=== PATIENT | male | born 1955 | race Caucasian/White ===

== ENCOUNTER 2019-05-07 15:11 | Outpatient (CLI) | payer MEDICARE, SELFPAY ==
--- NOTE | 2019-05-07 15:32 | XR_ITS ---
WS: [id number] LATERAL LUMBAR SPINE: 3 view. Lateral radiographs are performed in upright neutral, flexion and extension to the patient's toleranc e. HISTORY: LOW PACK PAIN COMPARISON: None available. Severe straightening of the normal lumbar lordosis with severe loss of disc space height and endplate osteophytes. Facet joint arthropathy and sclerosis. During flexion and extension there is little mov ement of the spine. No instability is detected. XR/XR lumbar spine f/e only 71544 IMPRESSION: Severe multilevel spondylosis. No instability is demonstrated.
--- NOTE | 2019-05-07 15:48 | XR_ITS ---
WS: [id number] LEFT KNEE: 3 VIEW(S) TECHNIQUE: AP, oblique(s) and lateral. HISTORY: LEFT KNEE PAIN COMPARISON: None available. No fracture or dislocation. Moderate narrowing of the medial compartment with hypertrophic osteophytes in the medial and lateral compartments. Small suprapatellar joint effusion. No soft tissue abnormality. XR/XR knee LT 3V* [id number] IMPRESSION: 1. Moderate medial compartment osteoarthritis. 2. Small joint effusion. 3. With a small joint effusion an occult should be considered clinically. If kn ee pain persists consider follow-up LEFT knee CT evaluation.
== END 2019-05-07 15:12 | disposition home or self-care (01) ==
LOC: RADWPI 15:19
PROVIDERS: Family Provider Internal Medicine; PCP Internal Medicine; Visit Provider Nurse Practitioner
DX: M17.12 Unilateral primary osteoarthritis, left knee (principal); M47.896 Other spondylosis, lumbar region; M54.5 Low back pain; M25.562 Pain in left knee; M25.462 Effusion, left knee
CPT/HCPCS: 72120; 73562

== ENCOUNTER 2019-07-05 09:03 | Outpatient (CLI) | payer MEDICARE, SELFPAY ==
--- NOTE | 2019-07-05 09:23 | XR_ITS ---
WS: [id number] KNEES AP STANDING TECHNIQUE: Bilateral AP weightbearing view. CLINICAL INFORMATION: bilateral knee pain COMPARISON: None. FINDINGS: Bilateral standing views. Osteopenia. Advanced degenerative arthritis right knee with medial and late ral compartment narrowing. Hypertrophic changes along the joint line. Mild degenerative arthritis lef t knee. XR/[place] [id number] IMPRESSION: Advanced osteoarthritis right knee.
== END 2019-07-05 09:04 | disposition home or self-care (01) ==
LOC: RAD 09:08
PROVIDERS: Family Provider Internal Medicine; PCP Internal Medicine; Visit Provider Orthopaedic Surgery
DX: M17.11 Unilateral primary osteoarthritis, right knee (principal); M25.562 Pain in left knee; M25.561 Pain in right knee
CPT/HCPCS: 73565

== ENCOUNTER → 2020-11-03 09:54 | Day surgery (SDC) | payer MEDICARE, SELFPAY | PROVIDERS: PCP Internal Medicine; Visit Provider Orthopaedic Surgery | DX: Z01.818 Encounter for other preprocedural examination (principal) | CPT/HCPCS: 93005 ==

== ENCOUNTER → 2020-11-06 11:14 | Outpatient (BNVA) | payer MEDICARE, SELFPAY | PROVIDERS: PCP Internal Medicine; Visit Provider Orthopaedic Surgery | DX: Z20.822 Contact with and (suspected) exposure to COVID-19 (principal); M17.0 Bilateral primary osteoarthritis of knee | CPT/HCPCS: 87635 ==

== ENCOUNTER 2020-11-10 17:15 | Observation (INO) | payer MEDICARE, SELFPAY ==
[2020-11-03 09:30] VITALS: BMI 25.7
--- NOTE | 2020-11-03 09:47 | ANES.PREANE2 ---
Pre-Anesthetic Assessment Pre-Anesthetic Assessment: Height/Weight: Height 1.88 m Weight 90.718 kg Preop Diagnosis: Osteoarthritis Right knee Proposed Procedure: Operation Date: 11/10/20 07:00 Proposed Procedures p right Total Knee Arthroplasty 39979 m17.0(Right) - Dominic Manriquez MD Familial anesthetic complications: None Social: Social History: Tobacco and No alcohol Exam: Pre-Anes Outpt Exam: alert, oriented x 3, clear to auscultation bilaterally and regular rate & rhythm Airway: Cervical ROM: WNL MP: 2 Dentition: Full Additional comments: full [place] Pulmonary: Pulmonary: COPD CV/HEM: CV/HEM: HTN Metabolic: Metabolic: Thyroid Musc/skel: Musc/skel: Lower Back Pain Neuropsych: Neuropsych: Seizure (on levitracetam - last one over a week ago) Anesthetic Plan: ASA status: 3 Anesthesia: MAC and Regional (specify below) Other: Spinal + Adductor canal block Risk of > 500 ml blood loss (7ml/kg in children): No Other Pertinent Information: patient poor historian PFSH Anesthesia PFSH: Social History Smoking and tobacco status: current every day smoker cigarettes Packs smoked per day: 0.5 Alcohol intake: never Data Anesthesia Cardiac Studies: No Data to Display
--- NOTE | 2020-11-03 09:54 | ECG_ITS ---
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 Measurements Intervals [place] Rate: 58 P: 72 DE: 166 QRS: 55 QRSD: 118 T: 56 QT: 427 QTc: 421 Interpretive Statements SINUS BRADYCARDIA INCOMPLETE RIGHT BUNDLE BRANCH BLOCK [90+ ms QRS DURATION, TERMINAL R IN V1/V2, 40+ ms S IN I/aVL/V4/V5/V6] POSSIBLE INFERIOR MYOCARDIAL INFARCTION [30 ms Q WAVE IN II/aVF], OF INDETERMINATE AGE No previous ECG available for comparison Electronically Signed On 11-03-2020 19:02:47 CDT by Saulo Morrell M.D. [id number]
[2020-11-03 10:01] LABS: Hematocrit 38.7 % (42.0-52.0); Hemoglobin 12.5 g/dL (11.7-16.6); Mean Corpuscular HGB Conc 32.3 g/dL (30.0-36.0); Mean Corpuscular Hemoglobin 30.6 pg (28.0-34.0); Mean Corpuscular Volume 94.6 fL (80-94); Mean Platelet Volume 10.5 fL (7.4-10.4); Platelet Count 151 10^3/cmm (130-400); Red Blood Count 4.09 10^6/uL (4.1-5.3); Red Cell Distribution Width 13.1 % (12.1-15.1)
[2020-11-03 10:31] LABS: Absolute Eosinophils 0.1 10^3/cmm (0.0-0.7); Absolute Neutrophil 2.9 10^3/cmm (1.4-6.5); Absolute Segmented Neutrophil 2.7 10/cmm (1.6-7.1); Band Neutrophils Absolute 0.3 10^3/cmm (0.0-1.2); Eosinophils 3 %; Lymphocytes 32 %; Lymphocytes Absolute 1.6 10^3/cmm (1.2-3.4); Monocytes Absolute 0.4 10^3/cmm (0.1-0.6); Platelet Estimate Normal (Normal); Segmented Neutrophils 53 %; Total Cells Counted 100 (0-100)
[2020-11-03 10:39] LABS: Blood Urea Nitrogen 26 mg/dL (8-23); Calcium 8.9 mg/dL (8.5-10.5); Carbon Dioxide 28 mmol/L (22-29); Chloride 105 mmol/L (98-107); Glomerular Filtration Rate 55.4 mL/min (90-130); Glucose 116 mg/dL (65-115); Osmolality Calculated 296 mOsm/kg (285-295); Sodium 140 mmol/L (136-145)
[2020-11-10] VITALS (21 sets, daily range): BP systolic 96–184; BP diastolic 63–89; PULSE 46–61; RESP 15–23; TEMP 36.3–36.5; O2SAT 90–100
[2020-11-10] MEDS: sodium chloride 0.9% 1,000 ML 30 ML IV (10:25)
[2020-11-10] MEDS: gabapentin 300 mg Capsule PO (10:26)
[2020-11-10] MEDS: oxyCODONE 20 mg ER (12 HR) Tablet PO (10:26)
[2020-11-10] MEDS: CELEcoxib 200 mg Capsule 400 MG PO (10:26)
[2020-11-10] MEDS: acetaminophen 500 mg Tablet 1000 MG PO ×2 (10:27→18:14)
--- NOTE | 2020-11-10 11:58 | P.HP_ITS ---
Same Day Surgery H&P Indication for Procedure/HPI DATE OF PROCEDURE: November 10, 2020 CHIEF COMPLAINT/INDICATIONFOR SURGICAL PROCEDURE: 64-year-old male with osteoarthritis of the right knee. He is failed appropriate medications and injections and uses ambulatory aids with pain and insufficient function. He is here for elective right total knee arthroplasty PREOP DIAGNOSIS: Osteoarthritis Right knee PLANNED PROCEDRUE: Operation Date: 11/10/20 11:35 Proposed Procedures p right Total Knee Arthroplasty 94080 m17.0(Right) - Dominic Manriquez MD Medications/Allergies* Home Medications Medication Instructions Recorded Confirmed Type albuterol sulfate 90 mcg/actuation 2 puff INHALATION Q6H PRN 09/23/20 11/10/20 History aerosol inhaler celecoxib 100 mg capsule 100 mg PO BID 09/23/20 11/10/20 History cholecalciferol (vitamin D3) 50 50 mcg PO DAILY 09/23/20 11/03/20 History mcg (2,000 unit) capsule gabapentin 400 mg capsule 400 mg PO TID 09/23/20 11/03/20 History hydrochlorothiazide 12.5 mg tablet 12.5 mg PO DAILY 09/23/20 11/03/20 History hydroxyzine HCl 25 mg tablet 25 mg PO TID PRN 09/23/20 11/03/20 History levetiracetam 500 mg tablet 500 mg PO BID 09/23/20 11/03/20 History levothyroxine 88 mcg tablet 88 mcg PO DAILY 09/23/20 11/03/20 History multivitamin 1 tab PO DAILY 09/23/20 11/03/20 History naloxone 4 mg/actuation nasal spray 4 mg INTRANASAL Q3M PRN 09/23/20 11/03/20 History ondansetron HCl 4 mg tablet 4 mg PO Q6H PRN 09/23/20 11/03/20 History oxycodone 10 mg tablet 10 mg PO TID PRN 09/23/20 11/03/20 History ropinirole 1 mg tablet 1 mg PO DAILY 09/23/20 11/03/20 History sertraline 100 mg tablet 100 mg PO DAILY 09/23/20 11/03/20 History sildenafil 100 mg tablet 100 mg PO DAILY PRN 09/23/20 11/03/20 History tiotropium bromide 2.5 2 puff INHALATION DAILY 09/23/20 11/03/20 History mcg/actuation mist for inhalation tizanidine 4 mg capsule 4 mg PO BID PRN 09/23/20 11/03/20 History trazodone 100 mg tablet 100 mg PO DAILY 09/23/20 11/03/20 History Allergies/Adverse Reactions Allergy/AdvReac Type Severity Reaction Status Date / Time No Known Allergies Allergy Verified 11/03/20 09:25 Current Medications: Generic Name Dose Route Start Last Admin Trade Name Freq PRN Reason Stop Dose Admin Sodium Chloride 1,000 mls @ 30 mls/hr 11/10/20 10:00 11/10/20 10:25 Sodium Chloride 0.9% IV 11/11/20 09:59 30 mls/hr .Q24H SHAE Administration Pertinent History/Comorbid Conditions* Social History Smoking and tobacco status: current every day smoker cigarettes Packs smoked per day: 0.5 Alcohol intake: never Pertinent Exam Findings alert, oriented x 3, clear to auscultation bilaterally, regular rate & rhythm and operative site marked Recommendations Surgery/Procedure today Coding Level of Care Code Acute Hand Cooper Helper for Enmaunel Singh
--- NOTE | 2020-11-10 12:16 | P.ANESUD_ITS ---
Pre-Anesthetic Update Pre-Anesthetic Assessment: Date of Surgery/Procedure: 11/10/20 Preop Joanne gnosis: Osteoarthritis Right knee Proposed Procedure: Operation Date: 11/10/20 11:35 Proposed Procedures p right Total Knee Arthroplasty 21562 m17.0(Right) - Dominic Manriquez MD Any changes to Pre-Anesthetic Assessment?: No Last Intake: Intake Last Liquid Date 11/09/20 Last Liquid Time 20:00 Last Solid Date 11/09/20 Last Solid Time 18:00 Vitals: Temperature 97.3 F L 11/10/20 10:08 Temperature Source Temporal Artery S can 11/10/20 10:08 Pulse Rate 61 11/10/20 10:08 Respiratory Rate 18 11/10/20 10:08 Blood Pressure 143/88 11/10/20 10:08 Blood Pressure Brittanie n 106 11/10/20 10:08 Pulse Oximetry 94 11/10/20 10:08 Oxygen Delivery Me thod 11/10/20 10:08 Exam: Pre-Anes Outpt Exam: alert, oriented x 3, clear to auscultation bilaterally and regular rate & rhythm Other Pertinent Information: Other Pertinent Information: SAB with adductor blk Cardiac Studies: No Data to Display
[2020-11-10] MEDS: EPINEPHrine 1 mg/mL INJ XX (13:12)
[2020-11-10] MEDS: ketorolac 30 mg/mL INJ XX (13:13)
[2020-11-10] MEDS: tranexamic acid 1,000 mg/10mL SDV 1000 MG IRRIGATION (13:14)
--- NOTE | 2020-11-10 14:52 | P.PCN_ITS ---
Documented by User: Ramy Rey CRNA 11/10/20 14:52 PACU note PACU note: VSS, Good respiratory effort, report to MA[employer]GER [employer] Post-Anesthesia Exam: awake
--- NOTE | 2020-11-10 14:52 | PM.PACU ---
Documented by User: Ramy Rey CRNA 11/10/20 14:52 PACU note PACU note: VSS, Good respiratory effort, report to DRIVE THRU ORDER TAKER Post-Anesthesia Exam: awake
--- NOTE | 2020-11-10 15:01 | SUR.PHASEI ---
1447 PT AWAKE ALERT SITTING UP AT 40 DEGREES , PT HAS COPD, GOOD RESP EFFORT PT ON 3LNC , PT SPINAL ANESTHESIA, LEVEL AT T10, VSS 1515 PT AWAKE ALERT DENIES PAIN SPINAL AT T 12 PER PT RESPONSE TO TOUCH, X RAY HERE AND DONE.
--- NOTE | 2020-11-10 15:01 | ANES.PROC ---
Anesthesia Procedures Procedure/Date: 11/10/20 Nerve Block ^: Nerve Block 1: Main Anesthesia: spinal anesthesia block Time Out Performed: Yes Consent: requested by attending/covering physician Nerve block location: adductor canal (right) Anesthesia monitors applied: pulse oximetry, EKG, BP cuff and oxygen Anesthetic Used: ropivicaine 0.5% Amount of anesthesia used (mL): 20 Ultrasound used to: recognize landmarks Nerve Stimulator Used?: No Interscalene/Femoral BLK: 4 stimuplex 21 g needle used for position and inplane approach and visualize local anesthetic spread Injection: neg aspiration of heme Patient Tolerated Procedure: well Complications: none
--- NOTE | 2020-11-10 15:03 | XR_ITS ---
WS: [id number] Exam: XR knee RT 1-2V 30878 Date/Time of Exam: 11/10/2020 3:08 PM Reason For Exam: Right total knee arthroplasty A total knee prosthesis has been placed and is in excellent position. Postoperative changes in the ad jacent soft tissues. XR/XR knee RT 1-2V 05830 IMPRESSION: 1. Total knee replacement in excellent position.
--- NOTE | 2020-11-10 15:06 | PM.OP ---
Operative Report Date of procedure: November 10, 2020 Pre-op Diagnosis: Osteoarthritis Right knee Post-op diagnosis: same Post-op Findings: Same Procedure Done: Right total knee arthroplasty Implants: Michael total knee arthroplasty components were used includin) Size 7 triathalon cruciate substituting femoral component 2) Size 7 Tritanium tibial component 3) 38 mm /11 mm thickness Tritanium asymetric patella 4) Size 7/11 mm thickness posterior stabilized tibial bearing insert Pathology: none sent Surgeon: Dominic Manriquez Anesthesia: Nerve Block (Spinal, adductor canal) Estimated blood loss (mL): 300 Findings: The patient had tricompartmental degenerative changes with marked eburnation over his lateral femoral condyle and lateral tibial plateau Condition: stable Disposition: PACU Procedure: The patient was taken to the operating room. Patient was given 1 g of tranexamic acid . The above anesthesia provided by the anesthesia service. A timeout was performed. The patient was prepped and draped in the usual fashion with the lower extremity exposed. A anterior incision was made, midline, from a point proximal to the patella to the distal tibial tubercle. The knee was entered through a medial parapatellar approach. The patella could be displaced laterally and the knee flexed. The patellar fat pad was resected to provide better visibility. Retractors were placed medially and laterally adjacent to the tibial plateau. The femoral canal was drilled in line with the longitudinal axis of the femur. Intramedullary femoral guide for used to make a distal femoral cut in 5 degrees of valgus, resecting 8 mm from the more prominent condyle. Next the extra medullary tibial guide was placed in alignment with the longitudinal axis of the tibia. The cutting guides were set to remove just over 2 mm from the low lateral tibial plateau. The proximal tibia was then cut. The femoral measuring guide was then placed over the distal femur. Rotation was verified checking the relationship of the guide to the condyle and the trochlear groove. The femur was measured and cut for the desired femoral component. Due to the amount of resection of the proximal tibia I decision was made to proceed with a posterior stabilized component and the box cut out of the distal femur for that component. The desired tibial baseplate was then chosen. A trial reduction with the femur tibial baseplate and polyethylene was done, assuring that the knee was stable throughout full motion. Balance was obtained with bony cuts andspecific ligamentous releases were accomplished.The tibia was prepared for the tibial baseplate. Patellar thickness was then measured. The patella was cut removing articular cartilage and prepared for appropriate size patellar button. surfaces were cleaned with a gentamicin/tranexamic acid solution. The femur tibia and patella were then press-fit into place. Patellar stability was thought to be less than optimal. The patella was removed and surfaces cleaned with saline. The patella was then cemented into place. The posterior capsule and collateral ligaments were then injected with a solution of 100 mL of 0.2% ropivacaine, 1 mL of a 1:1000 epinephrine solution, and 30 mg of Toradol. Final polyethylene component was then snapped into place into the tibia. The tourniquet was deflated. The tranxanemic acid was left contact with the knee for 5 minutes before the knee was irrigated with saline. The extensor retinaculum was closed with a running 1 Stratafix.. The subcutaneous tissues were closed with 2-0 Vicryl and the skin was closed with a running 3-0 Stratafix. The wound was covered with a Dermabond Prinio dressing. It was covered with 4xrs and a compressive Tubigauae was applied. The patient was taken to recovery room in stable condition.
--- NOTE | 2020-11-10 16:01 | SUR.PHASEI ---
1536 pt awake alert denies pain bedside handoff to YOANDY RN pt to be held in OPS UNTIL BED IS AVAILABLE.
--- NOTE | 2020-11-10 16:43 | ANE.PACU2 ---
Inpatient post-anesthesia follow up: Airway intact: Yes Vital signs: Temperature 97.4 F Pulse Rate 48 Respiratory Rate 18 Blood Pressure 96/66 Pulse Oximetry 93 Oxygen Delivery Me thod Room Air Oxygen Flow Rate 2 Fraction of Inspir ed Oxygen Hydration adequate: Yes Nausea and vomiting: No Pain level: 2 Mental status: Baseline
[2020-11-10] MEDS: sodium chloride 0.9% 1,000 ML 100 ML IV ×2 (18:13→23:29)
[2020-11-10] MEDS: gabapentin 400 mg Capsule PO ×2 (18:14→21:03)
[2020-11-10] MEDS: levETIRAcetam 500 mg Tablet PO (18:15)
[2020-11-10] MEDS: oxyCODONE 5 mg IR Tab/Cap 10 MG PO ×2 (18:15→21:53)
[2020-11-10] MEDS: morphine 4 mg/mL SDV 1 mL IVP ×4 (19:17→23:38)
[2020-11-10] MEDS: CELEcoxib 200 mg Capsule PO (21:03)
[2020-11-10] MEDS: trazodone 100 mg Tablet PO (21:04)
[2020-11-10] MEDS: sertraline 100 mg Tablet PO (21:04)
[2020-11-10] MEDS: tizanidine 4 mg Tablet PO (21:54)
[2020-11-11] VITALS (10 sets, daily range): BP systolic 134–140; BP diastolic 74–75; PULSE 70–73; RESP 15–20; TEMP 36.6–37.3; O2SAT 90–92
[2020-11-11] MEDS: morphine 4 mg/mL SDV 1 mL IVP ×5 (01:06→09:17)
[2020-11-11 02:41] LABS: Hemoglobin 11.4 g/dL (11.7-16.6)
[2020-11-11] MEDS: oxyCODONE 5 mg IR Tab/Cap 10 MG PO ×3 (06:00→13:10)
[2020-11-11] MEDS: sennosides-docusate Tablet 2 TAB PO (08:17)
[2020-11-11] MEDS: gabapentin 400 mg Capsule PO (08:17)
[2020-11-11] MEDS: levETIRAcetam 500 mg Tablet PO (08:17)
[2020-11-11] MEDS: hydroCHLOROthiazide 25 mg Tablet 12.5 MG PO (08:18)
[2020-11-11] MEDS: ropinirole 1 mg Tablet PO (08:18)
[2020-11-11] MEDS: levothyroxine 88 mcg Tablet PO (08:18)
[2020-11-11] MEDS: CELEcoxib 200 mg Capsule PO (08:18)
[2020-11-11] MEDS: multivitamin therapeutic Tablet 1 TAB PO (08:18)
[2020-11-11] MEDS: aspirin 325 mg EC Tablet PO (08:18)
[2020-11-11] MEDS: acetaminophen 500 mg Tablet 1000 MG PO (09:21)
--- NOTE | 2020-11-11 10:26 | PC.CHAP ---
Pastoral Care Encounter/Spiritual Assessment Type of Contact [] Declined aircraft maintenance director visit [] Patient/Family/Request visit [] Outpatient visit [] Follow-up visit [] Physician referral [] Code/Alert [x] Routine visit [] Staff referral [] Actively dying [] Patient sleeping [] Family support [] [] Out of room [] Palliative care [] [] Receiving care in room [] Pre-surgical visit [] Trauma [] Long length of stay [] ICU visit [] Other: Relational/Emotional Strength [] Patient feels connected with others/family/visitors/staff [] Distress [] Loneliness/isolation [] Abandonment Spirituality of Patient [x] Person of [place] [] Attends Sikh of their [place] [] Believes in Prayer [] Reads Bible or Bahai materials [] There are Spiritual issues to be addressed Bed And Breakfast Innkeeper Interventions [x] Prayer [] Active listening [] Non-anxious presence [] Spiritual/emotional support [] Crisis/trauma care [] Spiritual counseling [] Bereavement support [] Provided bereavement packet [] Provided Bible/devotional materials [] Provided toy/stuffed animal, coloring book to patient or family member [] Provided Communion [] Anointing/[place] [] Salvation [x] Completed spiritual assessment [] Other: Impact on Illness or Injury [] Angry [] Fearful [] Anxious [] Often cries [] Exhaustion [] Unable to work [] Unable to attend methodist [] Unable to walk/stand [] Unable to read [] Unable to drive [] Unable to eat/drink [] Unable to sleep [] Unable to be with family [] Patient intubated [] Other: Summary lopts of pain Time spent with patient 5 mi9n
--- NOTE | 2020-11-11 13:29 | PM.DCS ---
Discharge Providers Date of Admission: 11/10/20 17:15 Date of Discharge: November 11, 2020 Attending Provider at Admission: Dominic Manriquez MD Attending Provider at Discharge: Dominic Manriquez MD Primary Care Provider: Jericho Green MD Reason for Visit Reason for Visit: right total knee arthroplasty/ 44060 Hospital Course Hospital Course The patient tolerated surgery well. They remained hemodynamically stable. They was begun on aspirin and sequential compression devices for DVT prophylaxis. The patient was mobilized with therapy beginning the day of surgery and by the first postoperative day independent with the walker. As the pain was adequately controlled and they were fully mobile they were discharged home. Physical Exam Narrative: EXAM NARRATIVE: On the day of discharge his knee incision was clean. They had no drainage. There is minimal swelling in the thigh and knee and the calf. No distal neurovascular deficits were noted Urinary Catheter Management^: Ojeda: Cath Placed During This Visit: yes, but has since been removed by the nurse Reason for Continuing Indwelling Catheter: Perioperative Use in Selected Surgeries Urinary Catheter Date of Insertion: 11/10/20 Urinary Catheter Time of Insertion: 12:50 Date Urinary Catheter Removed: 11/11/20 Time Urinary Catheter Discontinued: 06:22 Discharge Data Data Completed and Pending: Completed Studies During Hospitalization Category Date Time Status XR knee RT 1-2V 7 3560 Routine Exams 11/10/20 15:03 Completed Labs from last 24 hours 11/11/20 02:17 Hgb 11.4 L Vitals: Last Vital Signs Temp 99.2 F 11/11/20 11:43 Pulse 73 11/11/20 11:43 Resp 20 H 11/11/20 13:10 BP 134/74 11/11/20 11:43 Pulse Ox 91 11/11/20 11:43 Discharge Plan Discharge Patient Disposition: Home Condition: Stable Prescriptions: New acetaminophen 500 mg Tablet 1,000 mg PO Q8H 14 Days Qty: 84 RF: 0 celecoxib 200 mg Capsule 200 mg PO Q12H 14 Days Qty: 28 RF: 0 aspirin 325 mg Tablet,Delayed Release (Dr/Ec) 325 mg PO DAILY 30 Days Qty: 30 RF: 0 oxycodone 5 mg Tablet 10 mg PO Q3H PRN (Reason: Severe Pain) 7 Days Qty: 40 RF: 0 Continued sertraline 100 mg tablet 100 mg PO DAILY RF: 0 trazodone 100 mg tablet 100 mg PO DAILY RF: 0 albuterol sulfate 90 mcg/actuation HFA aerosol inhaler 2 puff inhalation Q6H PRN (Reason: sob) RF: 0 gabapentin 400 mg capsule 400 mg PO TID RF: 0 hydrochlorothiazide 12.5 mg tablet 12.5 mg PO DAILY RF: 0 levetiracetam [Keppra] 500 mg tablet 500 mg PO BID RF: 0 levothyroxine [Synthroid] 88 mcg tablet 88 mcg PO DAILY RF: 0 ropinirole 1 mg tablet 1 mg PO DAILY RF: 0 Spiriva Respimat 2.5 mcg/actuation mist 2 puff inhalation DAILY RF: 0 tizanidine 4 mg capsule 4 mg PO BID PRN (Reason: Pain) RF: 0 hydroxyzine HCl 25 mg tablet 25 mg PO TID PRN (Reason: Blood Pressure) RF: 0 sildenafil [Viagra] 100 mg tablet 100 mg PO DAILY PRN (Reason: Sexual Activity) RF: 0 ondansetron HCl [Zofran] 4 mg tablet 4 mg PO Q6H PRN (Reason: Nausea) RF: 0 Narcan 4 mg/actuation spray,non-aerosol 4 mg intranasal Q3M PRN (Reason: over dose) RF: 0 cholecalciferol (vitamin D3) 50 mcg (2,000 unit) capsule 50 mcg PO DAILY RF: 0 multivitamin Tablet 1 tab PO DAILY RF: 0 Discontinued celecoxib [Celebrex] 100 mg capsule 100 mg PO BID RF: 0 oxycodone 10 mg tablet 10 mg PO TID PRN (Reason: pain]) RF: 0 Discharge Orders: Discharge Order (Routine); Ordered 11/11/20 Ordered By: Dominic Manriquez Referrals: [facility] [Outside] Dominic Manriquez MD [Physician] - 11/14/20 1:30 pm (Tuesday) Discharge Diet: Advance as tolerated Discharge Activity: Limit activity as instructed Patient Instructions: Aspirin (By mouth), Oxycodone, Rapid Release (By mouth), Celecoxib (By mouth), Total Knee Replacement (DC), Opioid Safety Activity Restrictions/Additional Instructions: take okay to shower Keep Tubigauze sleeve in place for swelling. Okay to remove for hygiene. Apply FirstIce up to 20 min/hr for pain and swelling Take 200 mg Celebrex twice a day for the next 15 days for pain , resume normal dose of Celebrex thereafter Take Tylenol 500mg (1-2 tabs) as needed 3 times a day for mild pain take oxycodone for breakthrough pain. Exercises per physical therapy. May weight-bear as tolerated on total knee arthroplasty For breakthrough pain. Exercises per physical therapy. May weight-bear as tolerated on total knee arthroplasty Discharge Attestations Time Spent in Discharge Care*: other Quality Metrics Clinical Quality Measures During this hospital stay, did patient experience: None Coding Level of Care Code Acute Nadia AMARA COREAS note
--- NOTE | 2020-11-11 14:38 | PC.NURSE ---
Discharge instructions went over with patient and spouse at bedside. Patient and stated understanding Patient's meds were discussed and went over, sent to pharmacy on file. Sent home extra supplies until home health could make it to the house. IV discontinued and patient wheeled out via wheelchair to private vehicle.
== END 2020-11-11 14:44 | disposition home or self-care (01) ==
LOC: MEDSURG 17:15
PROVIDERS: Anesthesiology; Admitting Provider Orthopaedic Surgery; PCP Internal Medicine; Visit Provider Orthopaedic Surgery
PROC: (CPT 27447; principal; 2020-11-10 11:35)
DX: M17.11 Unilateral primary osteoarthritis, right knee (principal); F17.210 Nicotine dependence, cigarettes, uncomplicated; J44.9 Chronic obstructive pulmonary disease, unspecified; I10 Essential (primary) hypertension
CPT/HCPCS: 27447; 36415; 51702; 64447; 73560; 76942; 80048; 85007; 85018; 85027; 96365; 97110; 97116; 97162; 97167; C1776; G0378; J0171; J0690; J1580; J1885; J2250; J2270; J2405; J2795; J3010; J7030

== ENCOUNTER → 2020-12-10 10:35 | Outpatient (BNVA) | payer MEDICARE, SELFPAY | PROVIDERS: PCP Internal Medicine; Visit Provider Orthopaedic Surgery | DX: Z96.651 Presence of right artificial knee joint (principal); M17.11 Unilateral primary osteoarthritis, right knee | CPT/HCPCS: 73560; 73565 ==

== ENCOUNTER → 2021-10-28 10:19 | Outpatient (BNVA) | payer MEDICARE, SELFPAY | PROVIDERS: PCP Internal Medicine; Visit Provider Specialist | DX: Z96.651 Presence of right artificial knee joint (principal); M17.12 Unilateral primary osteoarthritis, left knee; M25.561 Pain in right knee; M25.562 Pain in left knee; G89.29 Other chronic pain | CPT/HCPCS: 99205; 99214 ==

== ENCOUNTER 2021-12-18 08:48 | Outpatient (CLI) | payer MEDICARE, SELFPAY ==
--- NOTE | 2021-12-18 08:57 | NM_ITS ---
WS: [id number] THREE-PHASE BONE SCAN, three-phase HISTORY: Right-sided knee replacement. LEFT knee pain. COMPARISON: No similar studies. Radiographs 12/18/2021 and 08/18/2021 Patient is is injected with 23.7 mCi Tc99m HDP intravenously. Immediate angiographic phase imaging is performed over the area of concern. Static blood pool imaging also performed. Two-hour whole-body sc intigrams performed in anterior and posterior projections. Additional large field of view imaging sub mitted as necessary. 3 phase bone scan imaging centered over the knees. Normal arterial and blood pool phase imaging. Intense uptake of the radionuclide centered along the lateral compartment of the LEFT knee. This invo lves the articular surfaces of the femoral condyle and tibial plateau. Joint spaces appear narrowed. Prior RIGHT knee replacement. Additional focal area of increased uptake in the distal LEFT fibula. Mild bilateral AC joint and SC joint arthritis. Mild curvature and scoliosis of the lumbar spine. Mil d facet joint arthritis on the RIGHT at L2. Normal soft tissue and renal uptake. NM/NM bone 3 phase [id number] IMPRESSION: 1. Intense uptake involving the lateral compartment of the LEFT knee along the articular surfaces. Suspect this is all related to osteoarthritis. There is se merrill joint space narrowing and hypertrophic bone formation on the radiographic series that was obtained. No fracture. 2. Prior RIGHT knee arthroplasty. 3. Intense uptake involving the distal LEFT fibula corresponds to a healing no ndisplaced fracture by radiograph.
--- NOTE | 2021-12-18 12:02 | XR_ITS ---
WS: [id number] LEFT KNEE: 3 VIEW(S) TECHNIQUE: AP, oblique(s) and lateral. HISTORY: BONE SCAN COMPARISON COMPARISON: 08/18/2021 No fracture or dislocation. Bone upon bone within the lateral compartment. Joint space narrowing with hypertrophic osteophytes an d sclerosis in the lateral compartment. No fractures or loose bodies. No joint effusion. Moderate to severe patellofemoral joint space arthritis and narrowing. Mild arthro mahad medial compartment. XR/XR knee LT 3V* [id number] IMPRESSION: 1. Severe lateral compartment joint space narrowing with hypertrophic osteophy te formation. 2. No fractures.
--- NOTE | 2021-12-18 12:02 | XR_ITS ---
WS: [id number] LEFT ANKLE: 3 VIEW(S) TECHNIQUE: AP, oblique(s) and lateral. HISTORY: Abnormal uptake on bone scan. COMPARISON: Bone scan imaging 2021. Bones are osteopenic. Healing nondisplaced oblique fracture through the distal fibula. This correspon ds to the abnormality seen on the recent bone scan. XR/XR ankle LT min 3V* [id number] IMPRESSION: Healing nondisplaced distal fibular fracture.
== END 2021-12-18 08:49 | disposition home or self-care (01) ==
LOC: RAD 08:51
PROVIDERS: PCP Internal Medicine; Visit Provider Specialist
DX: M17.12 Unilateral primary osteoarthritis, left knee (principal); Z96.651 Presence of right artificial knee joint; S82.492D Other fracture of shaft of left fibula, subsequent encounter for closed fracture with routine healing; X58.XXXD Exposure to other specified factors, subsequent encounter
CPT/HCPCS: 73562; 73610; 78315; A9561

== ENCOUNTER → 2021-12-30 10:49 | Outpatient (BNVA) | payer MEDICARE, SELFPAY | PROVIDERS: PCP Internal Medicine; Visit Provider Specialist | DX: M17.12 Unilateral primary osteoarthritis, left knee (principal); Z96.651 Presence of right artificial knee joint | CPT/HCPCS: 99213 ==

== ENCOUNTER 2022-02-01 15:01 | Outpatient (CLI) | payer MEDICARE, SELFPAY ==
--- NOTE | 2022-02-01 15:00 | CT_ITS ---
WS: [id number] CT LEFT KNEE, NONCONTRAST HUGH TECHNIQUE: Noncontrast CT of the LEFT knee to include the LEFT hip and ankle. CLINICAL INFORMATION: left knee arthritis COMPARISON: None. DLP: [address] scans at [facility] use at least one of these dose optimization techniques: automated e xposure control; mA and/or kV adjustment per patient size (includes targeted exams where dose is matc hed to clinical indication); or iterative reconstruction. FINDINGS: Prior postoperative changes RIGHT TKA. Degenerative arthritis sacroiliac joints with hypertrophic sim nges. Moderate to advanced tricompartmental arthritis LEFT knee. Hypertrophic spurring along the join t line. Small suprapatellar effusion. Hypertrophic patella. Osteopenia. Vascular calcification. Promi nent prostate measuring 3.3 x 3.7 CM. Evidence of bladder outlet obstruction. Trace free fluid in the pelvis. CT/CT knee LT HUGH IMPRESSION: 1. Images obtained for preoperative HUGH purposes. 2. Prominent prostate measuring 3.3 x 3.7 CM. Evidence of bladder outlet obstr uction. Recommend correlation PSA.
== END 2022-02-01 15:02 | disposition home or self-care (01) ==
PROVIDERS: PCP Family Medicine; Visit Provider Specialist
DX: M17.12 Unilateral primary osteoarthritis, left knee (principal)
CPT/HCPCS: 73700

== ENCOUNTER → 2022-03-29 13:58 | Outpatient (BNVA) | payer MEDICARE, SELFPAY | PROVIDERS: PCP Family Medicine; Visit Provider Specialist | DX: N40.0 Benign prostatic hyperplasia without lower urinary tract symptoms (principal); M17.12 Unilateral primary osteoarthritis, left knee; Z96.651 Presence of right artificial knee joint | CPT/HCPCS: 36415; 80053; 81003; 84153; 85025; 99213 ==

== ENCOUNTER 2022-05-01 07:16 | Inpatient (IN) | payer MEDICARE, SELFPAY ==
[2022-05-01] VITALS (53 sets, daily range): BP systolic 96–119; BP diastolic 47–68; PULSE 75–100; RESP 12–27; TEMP 35.9–36.8; O2SAT 81–100
--- NOTE | 2022-05-01 07:23 | XRR_ITS ---
PROCEDURE INFORMATION: Exam: XR Chest Exam date and time: 05/01/2022 8:25 AM Age: 66 years old Clinical indication: Shortness of breath; Additional info: SOB TECHNIQUE: Imaging protocol: Radiologic exam of the chest. Views: 1 view. COMPARISON: CR XR KUB portable [id number] 05/01/2022 8:21 AM FINDINGS: Lungs: Indistinct bandlike density left lower lung zone presumed secondary to subsegmental atelectasis. Remaining lung bush are clear. Pleural spaces: Unremarkable. No pleural effusion. No pneumothorax. Heart/Mediastinum: Unremarkable. No cardiomegaly. Bones/joints: Unremarkable for age. XR/XR chest 1V portable [id number] IMPRESSION: Left lower lobe subsegmental atelectasis. Continued follow-up advised.
--- NOTE | 2022-05-01 07:35 | ED_ITS ---
HPI - Weakness General: Chief complaint: Weakness Stated complaint: WEAKNESS Time Seen by Provider: 05/01/22 07:23 History of Present Illness: 66-year-old male presents with generalized weakness. Patient was brought in by EMS. Patient was recently had labs drawn and was found to have an elevated ammonia level. He started on lactulose yesterday. Family reports that this morning he is just unable to really get up and walk around. He was requiring a little bit of oxygen typically does not need oxygen per EMS. Patient also had kind of a decreased low blood pressure was in the 80s. Patient complains of just some generalized abdominal pain, malaise. EMS reports that family states he has been a little confused for the last couple days as why they checked his ammonia level. 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 Patient denies shortness of breath, fevers or chills. Associated symptoms: Denies chest pain, chills, fever(s), nausea or vomiting Review of Systems Const: Denies: fever(s) or chills Card: Denies: chest pain or palpitations Resp: Denies: dyspnea or productive cough GI: Reports: abdominal pain; Denies: nausea or vomiting : Denies: flank pain Skin/Breast: Denies: rash Neuro: Reports: other (generalized weakness) PFS ED PFSH: Medical History Osteoarthritis of right knee Primary osteoarthritis of left knee Surgical History Status post meniscectomy Status post right knee replacement Family History (Updated 05/01/22 @ 11:35 by Serjio Espinal MD) Father Heart attack Social History (Updated 05/01/22 @ 11:35 by Serjio Espinal MD) Smoking and tobacco status: current every day smoker (1/2 PACK TO 1 PACK) cigarettes Packs smoked per day: 0.5 Alcohol intake: former Substance/Drug Use: unknown Physical Exam Const: GENERAL APPEARANCE: disheveled and other (chronically ill ) ORIENTATION/CONSCIOUSNESS: Yes oriented to person; not oriented to time HENMT: MOUTH: other (lip dry,cracked ) Resp: AUSCULTATION: diminished lung sounds bilateral and diffuse (mild) Cardio: COMMON NORMALS: regular rate and regular rhythm RATE: regular rate RHYTHM: regular rhythm GI: PALPATION: Yes Tenderness to palpation present (GI) (diffuse) Neuro: SENSORIUM/ORIENTATION: Yes oriented to person and No oriented to time SPEECH: abnormal speech Details: slurred (Mild) Psych: APPEARANCE: Yes disheveled ATTITUDE: Yes calm Skin: COMMON NORMALS: no rashes or lesions noted GENERAL SKIN EXAM: no rashes or lesions noted Course Vital Signs: Vital signs: Vital Signs Temperature 96.7 F L 05/01/22 07:23 Pulse Rate 98 05/01/22 11:30 Respiratory Rate 18 05/01/22 11:30 Blood Pressure 99/64 05/01/22 11:30 Pulse Oximetry 95 05/01/22 11:30 Oxygen Delivery Me thod 05/01/22 08:00 Oxygen Flow Rate 2 05/01/22 08:00 MDM - Weakness Medical Decision Making Reviewed patient's labs CT x-ray findings. There is some concerns about possible bleeding in the abdomen. However due to patient's medical conditions enlarged liver there is minimal that could be done. Did call and discussed with a couple hospitals and they have long wait time for admission. Patient does have some acute kidney injury and potential hepatorenal l syndrome. We will admit patient to Dr. Espinal for further inpatient management. Patient will receive some IV fluids and serial exams to determine if further evaluation and work work-up will be needed. Patient may have a potential second CT once his creatinine improves. Patient was stable upon admission. Lab Data 05/01/22 07:57 05/01/22 07:57 Radiology Impressions Chest X-Ray 05/01/22 07:23 IMPRESSION: Left lower lobe subsegmental atelectasis. Continued follow-up advised. KUB X-Ray 05/01/22 07:39 IMPRESSION: Findings suspicious for pronounced hepatomegaly which could be better assessed on CT exam. Abdomen/Pelvis CT 05/01/22 08:34 IMPRESSION: 1. Small volume free intraperitoneal fluid of differing attenuation measurements suggesting there is an element of hemoperitoneum. 2. The source of bleeding is uncertain based on this exam alone, but given stigmata of cirrhosis and portal hypertension there may be a bleeding venous structure which is not apparent on this noncontrast exam. ADDENDUM: 05/01/22 0956 THIS REPORT CONTAINS FINDINGS THAT MAY BE CRITICAL TO PATIENT CARE. The exam findings were verbally communicated by me via telephone conference to KEIKO SMITH at 9:44 AM STUDENT AMBASSADOR on 05/01/2022. The findings were acknowledged and understood. Laboratory Results WBC 11.3 10^3/uL (4.0-10.0) H 05/01/22 07:57 RBC 2.98 10^6/uL (4.1-5.3) L 05/01/22 07:57 Hgb 9.8 g/dL (11.7-16.6) L 05/01/22 07:57 Hct 30.3 % (42.0-52.0) L 05/01/22 07:57 MCV 101.7 fl (80-94) H 05/01/22 07:57 MCH 32.9 pg (28.0-34.0) 05/01/22 07:57 MCHC 32.3 g/dL (30.0-36.0) 05/01/22 07:57 RDW 18.8 % (12.1-15.1) H 05/01/22 07:57 Plt Count 100 10^3/cmm (130-400) L 05/01/22 07:57 MPV 13.2 fL (7.4-10.4) H 05/01/22 07:57 Neut % (Auto) 64.9 % 05/01/22 07:57 Lymph % (Auto) 21.0 % 05/01/22 07:57 Ceiba % (Auto) 9.7 % 05/01/22 07:57 Eos % (Auto) 3.4 % 05/01/22 07:57 Baso % (Auto) 1.0 % 05/01/22 07:57 Neut # (Auto) 6.38 10^3/uL (1.8-7.7) 05/01/22 07:57 Lymph # (Auto) 2.4 10^3/uL (0.8-4.8) 05/01/22 07:57 Ceiba # (Auto) 1.1 10^3/uL (0.2-0.9) H 05/01/22 07:57 Eos # (Auto) 0.4 10^3/uL (0.0-0.8) 05/01/22 07:57 Baso # (Auto) 0.1 10^3/uL (0.0-0.1) 05/01/22 07:57 Nucleated RBC % (auto) 0.4 % 05/01/22 07:57 Nucleated RBCs # 0.1 /100WBC 05/01/22 07:57 Sodium 138 mmol/L (136-145) 05/01/22 07:57 Potassium 5.1 mmol/L (3.5-5.1) 05/01/22 07:57 Chloride 100 mmol/L (98-107) 05/01/22 07:57 Carbon Dioxide 22 mmol/L (22-29) 05/01/22 07:57 Anion Gap 21.1 (5-19) H 05/01/22 07:57 BUN 46 mg/dL (8-23) H 05/01/22 07:57 Creatinine 2.5 mg/dL (0.7-1.2) H 05/01/22 07:57 GFR Calculation 25.9 mL/min (90-130) L 05/01/22 07:57 Glucose 92 mg/dL (65-115) 05/01/22 07:57 Calculated Osmolality 298 mOsm/kg (285-295) H 05/01/22 07:57 Lactate 3.8 mmol/L (0.5-2.2) H 05/01/22 11:00 Calcium 12.5 mg/dL (8.5-10.5) H 05/01/22 07:57 Magnesium 1.9 mg/dL (1.7-2.3) 05/01/22 07:57 Total Bilirubin 1.9 mg/dL (0.15-1.2) H 05/01/22 07:57 AST 285 U/L (0-40) H 05/01/22 07:57 ALT 51 U/L (0-41) H 05/01/22 07:57 Alkaline Phosphatase 232 U/L (40-130) H 05/01/22 07:57 Ammonia 33 umol/L (16-60) 05/01/22 07:57 Total Protein 6.8 g/dL (6.6-8.7) 05/01/22 07:57 Albumin 2.9 g/dL (3.5-5.2) L 05/01/22 07:57 Globulin 3.9 g/dL (1.3-4.6) 05/01/22 07:57 Procalcitonin 2.12 ng/mL (0-0.5) H 05/01/22 07:57 Ethyl Alcohol < 10 mg/dL (0-10) 05/01/22 07:57 Influenza Type A Ag negative (Negative) 05/01/22 07:39 Influenza Type B Ag negative (Negative) 05/01/22 07:39 SARS-CoV-2 Ag (Rapid) negative (Negative) 05/01/22 07:39 Discharge Plan Discharge Patient Disposition: Admitted As Inpatient Clinical Impression: Acute kidney failure, Hepatorenal failure, Liver cirrhosis Condition: Stable Coding Level of Care Code ED [employer] Fwd Exam Comprehensive
[2022-05-01] MEDS: sodium chloride 0.9% 1,000 ML 250 ML IV (07:36)
--- NOTE | 2022-05-01 07:39 | XRR_ITS ---
PROCEDURE INFORMATION: Exam: XR Abdomen Exam date and time: 05/01/2022 8:21 AM Age: 66 years old Clinical indication: Abdominal pain; Generalized; Additional info: Abd pain TECHNIQUE: Imaging protocol: Radiologic exam of the abdomen. Views: Frontal supine view of the abdomen. 1 View. COMPARISON: CR XR lumbar spine f/e only [id number] 05/07/2019 3:48 PM FINDINGS: Lungs: There is a bandlike opacity left lung base that may be secondary to subsegmental atelectasis. Gastrointestinal tract: Bowel gas pattern is nonobstructive. Organs: High liver appears significantly enlarged. Bones/joints: Mild-moderate degenerative changes are present throughout the lumbar spine. Other findings: No suspicous calcifications. XR/XR KUB portable [id number] IMPRESSION: Findings suspicious for pronounced hepatomegaly which could be better assessed on CT exam.
[2022-05-01 08:09] LABS: Basophils # 0.1 10^3/uL (0.0-0.1); Eosinophils # 0.4 10^3/uL (0.0-0.8); Eosinophils % 3.4 %; Hematocrit 30.3 % (42.0-52.0); Hemoglobin 9.8 g/dL (11.7-16.6); Lymphocytes # 2.4 10^3/uL (0.8-4.8); Mean Corpuscular HGB Conc 32.3 g/dL (30.0-36.0); Mean Corpuscular Hemoglobin 32.9 pg (28.0-34.0); Mean Corpuscular Volume 101.7 fl (80-94); Mean Platelet Volume 13.2 fL (7.4-10.4); Monocytes # 1.1 10^3/uL (0.2-0.9); Monocytes % 9.7 %; Neutrophils # 6.38 10^3/uL (1.8-7.7); Nucleated Red Blood Cells # 0.1 /100WBC; Nucleated Red Blood Cells % 0.4 %; Platelet Count 100 10^3/cmm (130-400); Red Blood Count 2.98 10^6/uL (4.1-5.3); Red Cell Distribution Width 18.8 % (12.1-15.1); White Blood Count 11.3 10^3/uL (4.0-10.0)
[2022-05-01 08:24] LABS: Alanine Aminotransferase 51 U/L (0-41); Albumin Level 2.9 g/dL (3.5-5.2); Alkaline Phosphatase 232 U/L (40-130); Blood Urea Nitrogen 46 mg/dL (8-23); Calcium 12.5 mg/dL (8.5-10.5); Carbon Dioxide 22 mmol/L (22-29); Chloride 100 mmol/L (98-107); Globulin 3.9 g/dL (1.3-4.6); Glomerular Filtration Rate 25.9 mL/min (90-130); Glucose 92 mg/dL (65-115); Magnesium 1.9 mg/dL (1.7-2.3); Osmolality Calculated 298 mOsm/kg (285-295); Sodium 138 mmol/L (136-145); Total Bilirubin 1.9 mg/dL (0.15-1.2); Total Protein 6.8 g/dL (6.6-8.7)
[2022-05-01 08:24] LABS: Influenza A by IFA negative (Negative); Influenza B by IFA negative (Negative); SARS Covid-2 Antigen negative (Negative)
[2022-05-01 08:25] LABS: Lactate (Lactic Acid level) 4.6 mmol/L (0.5-2.2)
[2022-05-01 08:26] LABS: Ammonia 33 umol/L (16-60); Anion Gap 21.1 (5-19); Potassium 5.1 mmol/L (3.5-5.1)
[2022-05-01 08:27] LABS: Aspartate Amino Transferase 285 U/L (0-40); Neutrophils % 64.9 %
[2022-05-01 08:28] LABS: Slide Review Slide Review Perform
--- NOTE | 2022-05-01 08:30 | PC.NURSE ---
PT STATES LAST TUESDAY PT WENT TO HOME [facility] AND WAS DIAGNOSED WITH CIRRHOSIS OF THE LIVER, AND WORSENING OF PANCREATITIS. ALSO STATES PT AMONIA LEVEL WAS VERY HIGH. STATES PT WAS STARTED ON LACTULOSE. STATES SHE ADMINISTERED 90ML OF LACTULOSE YESTERDAY. DX OF CIRRHOSIS AND LAB FINDINGS BY DR. FLORES PER . PER PT WAS A HEAVY DRINKER AND STOPPED DRINKING THIS PAST FEBRUARY. STATES PT CURRENT CONFUSION IS NOT BASELINE.
--- NOTE | 2022-05-01 08:34 | CTR_ITS ---
PROCEDURE INFORMATION: Exam: CT Abdomen And Pelvis Without Contrast Exam date and time: 05/01/2022 9:11 AM Age: 66 years old Clinical indication: Abdominal pain; Generalized; Additional info: Abd pain TECHNIQUE: Imaging protocol: Computed tomography of the abdomen and pelvis without contrast. Radiation optimization: All CT scans at this facility use at least one of these dose optimization techniques: automated exposure control; mA and/or kV adjustment per patient size (includes targeted exams where dose is matched to clinical indication); or iterative reconstruction. COMPARISON: CR XR KUB portable [id number] 05/01/2022 8:21 AM RADIATION DOSE METRICS: Total DLP (mGy-cm): 776.38 FINDINGS: Limitations: The study is technically limited by breathing motion artifact. Liver: Enlarged, heterogeneous liver with a nodular contour suggesting cirrhosis. There may be some fatty change involving the left lobe. There appear to be dilated intrahepatic vascular structures in the left lobe which could be due to/related to an intrahepatic portal venous to hepatic venous fistula(s). Gallbladder and bile ducts: No calcified gallstones, gallbladder wall thickening, or pericholecystic inflammation. No biliary ductal dilation. Pancreas: No pancreatic enlargement, peripancreatic inflammation, or ductal dilation. Spleen: The spleen is prominent in size but homogeneous. Adrenal glands: No mass. Kidneys and ureters: No nephrolithiasis or hydronephrosis. Stomach and bowel: No bowel obstruction or ileus. Appendix: Not visualized. Intraperitoneal space: Small volume free intraperitoneal fluid. There is a small amount of right perihepatic fluid with attenuation measurements near water. However, there is additional small amount of fluid in the deep pelvis with attenuation measurements suggesting this is due to hemoperitoneum (25-40 HU). Blood products could descend into the most dependent portion of the peritoneal cavity which would be in the pelvis. No pneumoperitoneum. Vasculature: There is a left inferior vena cava, an anatomic variant. No abdominal aortic aneurysm. Lymph nodes: No pathologically enlarged lymph nodes. Urinary bladder: The urinary bladder is small in volume. There is concentric bladder wall thickening which can be due to lack of distension, chronic bladder outlet obstruction and/or cystitis. Reproductive: Prostatic calcifications. Bones/joints: Multilevel disc degeneration and facet arthropathy in the lumbar spine. Soft tissues: There is bilateral subcutaneous body wall edema. CT/CT abdomen pelvis wo con [id number] IMPRESSION: 1. Small volume free intraperitoneal fluid of differing attenuation measurements suggesting there is an element of hemoperitoneum. 2. The source of bleeding is uncertain based on this exam alone, but given stigmata of cirrhosis and portal hypertension there may be a bleeding venous structure which is not apparent on this noncontrast exam.
--- NOTE | 2022-05-01 09:27 | PC.NURSE ---
answered call light, pt req TV be turned on. Assisted pt, lights dimmed for comfort. Call light remains in reach.
--- NOTE | 2022-05-01 10:11 | PC.NURSE ---
DR. SMITH DENIED NEED FOR BLOOD CULTURES
[2022-05-01] MEDS: fentaNYL 50 mcg/mL INJ 2mL IVP (10:20)
[2022-05-01] MEDS: piperacillin-tazobactam 3.375 GM in sodium chloride 0.9% (plus) 50 ML IV ×3 (10:21→23:43)
--- NOTE | 2022-05-01 10:44 | P.HP_ITS ---
Providers/Chief Complaint Admitting Physician: Serjio Espinal MD Primary Care Provider: Billy Diop Chief Complaint: WEAKNESS History of Present Illness Jayy De León is a 66 year old male with a past medical history significant for liver cirrhosis, tobacco use disorder, alcohol use disorder, COPD, hypertension, seizures, hypothyroidism, and depression who presents to the emergency department via EMS with generalized weakness. Patient is a very poor historian. No family present for collateral information. Further history obtained from ED provider. Patient was reportedly recently started on lactulose due to elevated ammonia level. Family reported to EMS that this morning he was unable to get up and walk around. He was diffusely weak. He was also noted to require oxygen by EMS. He was found to have a low blood pressure treated with IV fluids with some improvement in route. Patient himself complains of generalized abdominal discomfort, fatigue, and malaise. EMS also reported family felt like he has been confused over the last few days which was the reason his ammonia level was checked. Patient denies any chest pain, fevers or chills. Patient denies other alleviating or aggravating factors. Denies any nausea or vomiting. He knows he is at a hospital but not sure what town. He thinks the year is 2019. Review of Systems Narrative: A complete review of systems was obtained and is negative except as stated in HPI. Medications/Allergies Home Medications Medication Instructions Recorded Confirmed Last Taken Type albuterol sulfate 90 mcg/actuation 2 puff inhalation Q6H PRN sob 09/23/20 05/01/22 Unknown History aerosol inhaler cholecalciferol (vitamin D3) 50 50 mcg PO DAILY 09/23/20 05/01/22 Unknown History mcg (2,000 unit) capsule gabapentin 400 mg capsule 400 mg PO TID 09/23/20 05/01/22 Unknown History hydrochlorothiazide 12.5 mg tablet 12.5 mg PO DAILY 09/23/20 05/01/22 Unknown History hydroxyzine HCl 25 mg tablet 25 mg PO TID PRN Blood Pressure 09/23/20 05/01/22 Unknown History levetiracetam 500 mg tablet 500 mg PO BID 09/23/20 05/01/22 Unknown History (Keppra) multivitamin 1 tab PO DAILY 09/23/20 05/01/22 Unknown History naloxone 4 mg/actuation nasal 4 mg intranasal Q3M PRN over dose 09/23/20 05/01/22 Unknown History spray (Narcan) ondansetron HCl 4 mg tablet 4 mg PO Q6H PRN Nausea 09/23/20 05/01/22 Unknown History (Zofran) ropinirole 1 mg tablet 1 mg PO BEDTIME 09/23/20 05/01/22 Unknown History sertraline 100 mg tablet 100 mg PO DAILY 09/23/20 05/01/22 Unknown History sildenafil 100 mg tablet (Viagra) 100 mg PO DAILY PRN Sexual Activity 09/23/20 05/01/22 Unknown History tiotropium bromide 2.5 2 puff inhalation DAILY 09/23/20 05/01/22 Unknown History mcg/actuation mist for inhalation (Spiriva Respimat) tizanidine 4 mg capsule 4 mg PO BID PRN Pain 09/23/20 03/29/22 Unknown History trazodone 100 mg tablet 100 mg PO DAILY 09/23/20 03/29/22 Unknown History celecoxib 200 mg capsule (Celebrex) 200 mg PO DAILY 10/28/21 05/01/22 Unknown History thiamine HCl (vitamin B1) 100 mg 50 mg PO DAILY 10/28/21 05/01/22 Unknown History tablet lactulose 10 gram/15 mL oral 10 g PO DAILY PRN Constipation 05/01/22 05/01/22 Unknown History solution levothyroxine 100 mcg tablet 100 mcg PO DAILY 05/01/22 05/01/22 Unknown History meloxicam 7.5 mg tablet 7.5 mg PO DAILY 05/01/22 05/01/22 Unknown History oxycodone 15 mg tablet 15 mg PO Q4H PRN Pain 05/01/22 05/01/22 Unknown History Allergies Allergy/AdvReac Type Severity Reaction Status Date / Time No Known Allergies Allergy Verified 03/29/22 13:10 PFSH Acute PFSH: Medical History Osteoarthritis of right knee Primary osteoarthritis of left knee Surgical History Status post meniscectomy Status post right knee replacement Family History (Updated 05/01/22 @ 11:35 by Serjio Espinal MD) Father Heart attack Social History (Updated 05/01/22 @ 11:35 by Serjio Espinal MD) Smoking and tobacco status: current every day smoker (1/2 PACK TO 1 PACK) cigarettes Packs smoked per day: 0.5 Alcohol intake: former Substance/Drug Use: unknown Vitals/I&O/Wt Last Vital Signs Temp 96.7 F L 05/01/22 07:23 Pulse 88 05/01/22 09:50 Resp 17 05/01/22 10:20 BP 111/54 05/01/22 09:50 Pulse Ox 95 05/01/22 10:20 O2 Del Method 05/01/22 08:00 O2 Flow Rate 2 05/01/22 08:00 Weight last 48 hrs Weight 72.575 kg Physical Exam Narrative: General: Patient is slightly lethargic. Frail-appearing. Head: Normocephalic. Atraumatic. EOM intact. Temporal wasting present. Neck: No JVD. Cardiovascular: RRR. No gallops. No murmurs. No peripheral edema. Lungs: Breath sounds diminished at bilateral bases, no use of accessory muscles, no crackles or wheezes. Skin: No jaundice. No rashes. Abdomen: Normal bowel sounds, abdomen soft and very mild tenderness to palpation. Genito Urinary: Genital exam not performed since complaints not related. Rectal: Rectal exam not performed since no symptoms indicated blood loss. Extremities: No cyanosis or clubbing. Musculoskeletal: Normal range of motion, no swollen or erythematous joints. Neurological: Moves all 4 extremities. No myoclonus. Data 05/01/22 07:57 05/01/22 07:57 A&P Assessment and plan (1) Acute metabolic encephalopathy: Ammonia level checked and normal at 33 Hold Lactulose Frequent reorientation (2) Acute kidney injury: Start IV fluids Strict I's and O's Renally dose medications Consider further imaging if no improvement in renal function (3) Failure to thrive: Patient's prior baselines unclear Treat underlying conditions PT/OT (4) Liver cirrhosis: With portal hypertension CT imaging reviewed, concerning for possible venous oozing Serial abdominal exams Trend hemoglobin Avoid hepatotoxins (5) Transaminitis: His AST to ALT ratio suggestive of alcohol use Obtain ethanol level (6) Lactic acidosis: Source of lactic acidosis unclear Possibly hepatic versus infection Patient started empirically on Zosyn, will continue for now Panculture (7) Alcohol use disorder: Unclear if patient still drinking Liver function testing suggest alcohol use Ethanol level ordered UDS ordered Thiamine Folate Multivitamin (8) Debility: PT/OT (9) COPD (chronic obstructive pulmonary disease): Not in acute exacerbation (10) Hypertension: Holding home HCTZ due to KELELE (11) Tobacco use disorder: Patient would benefit from smoking cessation (12) Hypothyroidism: Continue home Synthroid (13) Seizure disorder: Continue home Keppra (14) Chronic pain: Hold home Celebrex and meloxicam due to KELLEE Continue oxycodone at reduced home dose Plan DVT ppx: Heparin Code status: Full Code Attestations Medical Necessity Statement*: Patient presents with generalized weakness, found to have multiple metabolic derangements and encephalopathy with expected hospital course to cross 2 midnights. Coding Level of Care Code Acute Code for [facility] Diagnoses Acute metabolic encephalopathy G93.41 Acute kidney injury N17.9 Failure to thrive Liver cirrhosis K74.60 Transaminitis R74.01 Lactic acidosis E87.20 Alcohol use disorder F19.90 Debility R53.81 COPD (chronic obstructive pulmonary disease) J44.9 Hypertension I10 Tobacco use disorder F17.200 Hypothyroidism E03.9 Seizure disorder G40.909 Chronic pain G89.29
[2022-05-01 11:25] LABS: Lactate (Lactic Acid level) 3.8 mmol/L (0.5-2.2)
[2022-05-01] MEDS: sodium chloride 0.9% 1,000 ML 150 ML IV (11:27)
--- NOTE | 2022-05-01 11:42 | PC.NURSE ---
ATTEMPTED TO STRAIGHT CATH PT WITH VERBAL ORDER FROM DR. SMITH. ATTEMPT UNSUCCESSFUL. PT REQUESTED TO STOP PROCEDURE.
[2022-05-01 12:07] LABS: Alcohol Level < 10 mg/dL (0-10); Procalcitonin 2.12 ng/mL (0-0.5)
--- NOTE | 2022-05-01 12:59 | PC.NURSE ---
report called to [facility] on Med Surg. room not clean at this time, they will call when room is ready
[2022-05-01 14:52] LABS: Thyroid Stimulating Hormone 8.66 uIU/mL (0.27-4.20)
[2022-05-01] MEDS: heparin 5,000 unit/mL INJ 1 mL 5000 UNIT SUBCUT (15:21)
[2022-05-01] MEDS: gabapentin 100 mg Capsule 200 MG PO ×2 (15:22→20:09)
[2022-05-01] MEDS: dextrose 5%-sod chloride 0.45% 1,000 ML 75 ML IV (16:16)
[2022-05-01 17:06] LABS: Amphetamines Screen Urine Negative (Negative); Barbiturates Screen Urine Negative (Negative); Benzodiazepines Screen Urine Negative (Negative); Cocaine Screen Urine Negative (Negative); Opiate Screen Urine Negative (Negative); PCP Screen Urine Negative (Negative); THC Screen Urine Negative (Negative)
[2022-05-01 17:16] LABS: Add Urine Microscopic? YES; Bilirubin Urine 1+ (Negative); Blood Urine Neg (Negative); Glucose Urine UA Norm (Normal); Ketones Urine 1+ (Negative); Leukocyte Esterase Urine Trace (Negative); Nitrate Urine Negative (Negative); Protein Urine 1+ (Negative); Specific Gravity, Urine 1.025 (1.005-1.030); Urine Appearance Hazy (CLEAR); Urine Color Dark Yellow (Yellow); Urobilinogen Urine 1 mg/dL (Negative); pH Urine 5 (5-7)
[2022-05-01 17:18] LABS: Squamous Epithelial Cell Urine RARE /hpf (0-5)
[2022-05-01 17:19] LABS: Bacteria Urine 2+ /hpf
[2022-05-01 17:20] LABS: Calcium Oxalate Crystals Urine 40-55 /hpf
[2022-05-01 17:22] LABS: Add Urine Culture? No
[2022-05-01] MEDS: levETIRAcetam 500 mg Tablet PO (18:20)
[2022-05-01] MEDS: ropinirole 1 mg Tablet PO (20:09)
--- NOTE | 2022-05-01 23:26 | PC.NURSE ---
O2 SAT O2 sat was 88-89%. Enc cough but very weak cough. O2 up to 3l with sat to 91%. Was incont urine and stool. Pushes against nurses and yelling when trying to clean and change him. Did have a good strong cough with moving him around. O2 sat stayed at 91. Pt care nurse notified
[2022-05-02] VITALS (7 sets, daily range): BP systolic 87–136; BP diastolic 54–66; PULSE 90–109; RESP 13–20; TEMP 36.7–37.2; O2SAT 90–95
[2022-05-02 05:38] LABS: INR 1.69 (0.8-1.2)
[2022-05-02 05:39] LABS: Basophils # 0.1 10^3/uL (0.0-0.1); Basophils % 0.7 %; Eosinophils # 0.4 10^3/uL (0.0-0.8); Eosinophils % 3.1 %; Hematocrit 27.5 % (42.0-52.0); Lymphocytes # 2.1 10^3/uL (0.8-4.8); Lymphocytes % 17.5 %; Mean Corpuscular HGB Conc 32.7 g/dL (30.0-36.0); Mean Corpuscular Hemoglobin 32.6 pg (28.0-34.0); Mean Corpuscular Volume 99.6 fl (80-94); Mean Platelet Volume 12.4 fL (7.4-10.4); Monocytes # 1.4 10^3/uL (0.2-0.9); Monocytes % 11.8 %; Neutrophils # 6.88 10^3/uL (1.8-7.7); Neutrophils % 57.1 %; Nucleated Red Blood Cells # 0.1 /100WBC; Nucleated Red Blood Cells % 0.7 %; Platelet Count 97 10^3/cmm (130-400); Red Blood Count 2.76 10^6/uL (4.1-5.3); Red Cell Distribution Width 18.7 % (12.1-15.1)
[2022-05-02 05:41] LABS: Alanine Aminotransferase 46 U/L (0-41); Albumin Level 2.4 g/dL (3.5-5.2); Alkaline Phosphatase 186 U/L (40-130); Anion Gap 14.7 (5-19); Aspartate Amino Transferase 262 U/L (0-40); Blood Urea Nitrogen 57 mg/dL (8-23); Calcium 11.3 mg/dL (8.5-10.5); Carbon Dioxide 21 mmol/L (22-29); Chloride 103 mmol/L (98-107); Globulin 3.1 g/dL (1.3-4.6); Glomerular Filtration Rate 22.7 mL/min (90-130); Glucose 103 mg/dL (65-115); Magnesium 1.9 mg/dL (1.7-2.3); Osmolality Calculated 294 mOsm/kg (285-295); Phosphorus 4.7 mg/dL (2.5-4.5); Potassium 4.7 mmol/L (3.5-5.1); Sodium 134 mmol/L (136-145); Total Bilirubin 1.4 mg/dL (0.15-1.2); Total Protein 5.5 g/dL (6.6-8.7)
[2022-05-02] MEDS: dextrose 5%-sod chloride 0.45% 1,000 ML 75 ML IV (05:50)
[2022-05-02 06:07] LABS: Slide Review Slide Review Perform
[2022-05-02] MEDS: piperacillin-tazobactam 3.375 GM in sodium chloride 0.9% (plus) 50 ML IV ×2 (07:56→16:11)
--- NOTE | 2022-05-02 10:23 | PM.CONSULT ---
Providers/Reason For Consult Consulting Physician/Specialty*: krish hunt md / telenephrology Reason for Consult*: KELLEE Requesting Physician: Serjio Espinal MD Attending Physician: Serjio Espinal MD Primary Care Provider: Billy Diop History of Present Illness History of Present Illness Jayy De León is a 66 year old male admitted w/ AMS and KELLEE His PMHx- includes ostaearthritis on celebrex, vitd d dev, htn on hctz, BPH, seizure d/o, and hypothyroidism. not able to obtain a hx- as he is confused. His baseline cr is 1.2 and on admission was 2.5 mg/dl. he is incontinent, not sure how much urine hae has had. CR today is 2.8 mg/dl and renal is called to see pt. PEr nurse his lungs developed crackles overnight and his ivf was discontinued. Review of Systems Narrative: not able to obtain due to poor MS Medications/Allergies Home Medications Medication Instructions Recorded Confirmed Last Taken Type albuterol sulfate 90 mcg/actuation 2 puff inhalation Q6H PRN sob 09/23/20 05/01/22 Unknown History aerosol inhaler cholecalciferol (vitamin D3) 50 50 mcg PO DAILY 09/23/20 05/01/22 Unknown History mcg (2,000 unit) capsule gabapentin 400 mg capsule 400 mg PO TID 09/23/20 05/01/22 Unknown History hydrochlorothiazide 12.5 mg tablet 12.5 mg PO DAILY 09/23/20 05/01/22 Unknown History hydroxyzine HCl 25 mg tablet 25 mg PO TID PRN Blood Pressure 09/23/20 05/01/22 Unknown History levetiracetam 500 mg tablet 500 mg PO BID 09/23/20 05/01/22 Unknown History (Keppra) multivitamin 1 tab PO DAILY 09/23/20 05/01/22 Unknown History naloxone 4 mg/actuation nasal 4 mg intranasal Q3M PRN over dose 09/23/20 05/01/22 Unknown History spray (Narcan) ondansetron HCl 4 mg tablet 4 mg PO Q6H PRN Nausea 09/23/20 05/01/22 Unknown History (Zofran) ropinirole 1 mg tablet 1 mg PO BEDTIME 09/23/20 05/01/22 Unknown History sertraline 100 mg tablet 100 mg PO DAILY 09/23/20 05/01/22 Unknown History sildenafil 100 mg tablet (Viagra) 100 mg PO DAILY PRN Sexual Activity 09/23/20 05/01/22 Unknown History tiotropium bromide 2.5 2 puff inhalation DAILY 09/23/20 05/01/22 Unknown History mcg/actuation mist for inhalation (Spiriva Respimat) tizanidine 4 mg capsule 4 mg PO BID PRN Pain 09/23/20 05/01/22 Unknown History trazodone 100 mg tablet 100 mg PO DAILY 09/23/20 05/01/22 Unknown History celecoxib 200 mg capsule (Celebrex) 200 mg PO DAILY 10/28/21 05/01/22 Unknown History thiamine HCl (vitamin B1) 100 mg 50 mg PO DAILY 10/28/21 05/01/22 Unknown History tablet lactulose 10 gram/15 mL oral 10 g PO DAILY PRN Constipation 05/01/22 05/01/22 Unknown History solution levothyroxine 100 mcg tablet 100 mcg PO DAILY 05/01/22 05/01/22 Unknown History meloxicam 7.5 mg tablet 7.5 mg PO DAILY 05/01/22 05/01/22 Unknown History oxycodone 15 mg tablet 15 mg PO Q4H PRN Pain 05/01/22 05/01/22 Unknown History Allergies Allergy/AdvReac Type Severity Reaction Status Date / Time No Known Allergies Allergy Verified 03/29/22 13:10 Current Medications Generic Name Dose Route Start Last Admin Trade Name Freq PRN Reason Stop Dose Admin Gabapentin 200 mg 05/01/22 15:00 05/02/22 07:57 Gabapentin 100 Mg Capsule PO 200 mg TID SHAE Administration Heparin Sodium (Porcine) 5,000 unit 05/01/22 13:53 05/02/22 00:45 Heparin 5,000 Unit/Ml Inj 1 Ml SUBCUT Not Given Q12H SHAE Piperacillin Sod/Tazobactam 50 mls @ 12.5 mls/hr 05/01/22 16:15 05/02/22 07:56 Sod 3.375 gm/ Sodium Chloride IV 12.5 mls/hr Q8H SHAE Administration Protocol As Directed Dextrose/Sodium Chloride 1,000 mls @ 75 mls/hr 05/01/22 15:45 05/02/22 05:50 Dextrose 5%-Sod Chloride 0.45% IV 75 mls/hr .[id number] SHAE Administration Levetiracetam 500 mg 05/01/22 18:00 05/02/22 07:57 Levetiracetam 500 Mg Tablet PO 500 mg BID SHAE Administration Levothyroxine Sodium 100 mcg 05/02/22 09:00 05/02/22 07:57 Levothyroxine 100 Mcg Tablet PO 100 mcg DAILY SHAE Administration Ropinirole HCl 1 mg 05/01/22 21:00 05/01/22 20:09 Ropinirole 1 Mg Tablet PO 1 mg BEDTIME SHAE Administration Senna 17.2 mg 05/01/22 21:00 05/01/22 19:35 Sennosides 8.6 Mg Tablet PO Not Given BEDTIME SHAE PFSH Acute PFSH: Medical History Osteoarthritis of right knee Primary osteoarthritis of left knee Surgical History Status post meniscectomy Status post right knee replacement Family History (Updated 05/01/22 @ 11:35 by Serjio Espinal MD) Father Heart attack Social History (Updated 05/01/22 @ 11:35 by Serjio Espinal MD) Smoking and tobacco status: current every day smoker (1/2 PACK TO 1 PACK) cigarettes Packs smoked per day: 0.5 Alcohol intake: former Substance/Drug Use: unknown Vitals/I&O/Wt Last Vital Signs Temp 98.1 F 05/02/22 08:00 Pulse 94 05/02/22 08:00 Resp 18 05/02/22 08:00 BP 109/66 05/02/22 08:00 Pulse Ox 95 05/02/22 08:00 O2 Del Method 05/02/22 08:00 O2 Flow Rate 3 05/02/22 03:06 05/01/22 05/02/22 05/02/22 22:59 06:59 14:59 Intake Total 2170 / 2220 1110 / 3330 Balance 2170 / 2220 1110 / 3330 Weight last 48 hrs Weight 87.543 kg Weight 72.575 kg Physical Exam Narrative: appears older than his age VS noted confused in bed w/ NC 02 henet- nc/at lungs ronchi and crackles b/l heart reg abd soft, nt, nd, +BS ext no edema neuro- minimally repsonsive to pain. not following commands Data 05/02/22 05:11 05/02/22 05:11 Micro: Microbiology 05/02/22 05:14 Blood Culture - Preliminary Blood SPECIMEN COLLECTED 05/02/22 05:11 Blood Culture - Preliminary Blood SPECIMEN COLLECTED A&P Assessment and plan (1) Acute kidney injury: 66 yr old man 1. cKD stage 3 a- baseline cr 1.2 mg/dl 2. Kellee- d d x is aTN - he was on hctz and Juarez-2 inhibitor. can raise his risk for poor glomerular perfusion. -no hydronephrosis on ct scan -check ck -given AMS, anemia, and thrombocytopenia- check ldh, retic, and haptoglobin -u/a w/ 1+ prot, 1+ ketones, trace LE, 5-10 wbc 5-10 40-55 ca oxalate crystals, SG 1025, 2+ bacteria- Q dry, Q UTI- ct scan also c/w Cystitis -place spencer and send urine electrolytes -monitor uop and chemistries -can be HRS- will check ur na 3. hyponatremia- check ur na, osm, cr - tsh 8.66 -would not cause hyponatremia. check am cortisol level had + lactate but no increase AG 4. inc LFT's -might be shocked liver also renal dose meds- agree w/ abx seen and examined w/ RN -telehealth visit Plan as above Consult Attestations Medical Necessity Statement: ams, kellee Time Spent in Patient Care: Greater than 35 minutes (>than 50% of time spent in counselling and/or direct pt care on unit). Coding Level of Care Code Acute Code for [facility] Diagnoses Acute kidney injury N17.9
--- NOTE | 2022-05-02 10:36 | XRR_ITS ---
PROCEDURE INFORMATION: Exam: XR Chest Exam date and time: 05/02/2022 10:46 AM Age: 66 years old Clinical indication: Shortness of breath; Additional info: SOB TECHNIQUE: Imaging protocol: Radiologic exam of the chest. Views: 1 view. COMPARISON: CR (CHEST, ) 05/01/2022 8:25 AM FINDINGS: Lungs: There is interval development of some patchy indistinct nodular opacities right mid lung zone likely secondary to acute airway disease (bronchiolitis). Remaining lung bush aerated and clear. Pleural spaces: Unremarkable. No pleural effusion. No pneumothorax. Heart/Mediastinum: Cardiac silhouette appears mildly enlarged on this portable chest x-ray. Bones/joints: Unremarkable for age. XR/XR chest 1V portable [id number] IMPRESSION: Patchy ground-glass infiltrate right mid lung zone likely secondary to acute bronchiolitis.
--- NOTE | 2022-05-02 10:59 | PC.OT ---
Attempted evaluation this date. Patient unable to participate. Spoke with RN who states to try assessment tomorrow when patient more awake and participatory.
[2022-05-02 12:17] LABS: Creatine Phosphokinase 76 U/L (39-308); Uric Acid 12.1 mg/dL (3.4-7.0)
[2022-05-02 12:33] LABS: Complement C3 112 mg/dL (90-180)
[2022-05-02 12:48] LABS: Lactate Dehydrogenase 1066 U/L (135-225)
--- NOTE | 2022-05-02 13:03 | PC.NURSE ---
Dr. Espinal aware pt is unable to swallow medications safely. NPO order and ST eval.
[2022-05-02] MEDS: pantoprazole 40 mg SDV IVP (13:24)
[2022-05-02] MEDS: octreotide 100 mcg/mL SDV IVP (13:24)
[2022-05-02] MEDS: haloperidol inj 5 mg/mL INJ 1 mL IM (14:45)
--- NOTE | 2022-05-02 15:10 | PC.SLP ---
Orders received, chart reviewed. Patient is unable to participate in a bedside swallowing evaluation at this time due to decreased mentation and alertness. Will continue to monitor and evaluate when appropriate.
--- NOTE | 2022-05-02 15:54 | P.PN_ITS ---
Subjective Subjective: Patient encephalopathic. He arouses and attempts to answer some questions but much of his features are incomprehensible. He seems to deny fevers, chills, nausea or emesis. Abdomen more distended. Clinically he is deteriorating. I called and discussed the patient with [facility]. First with interventional radiology Dr. Henley. Discussed whether or not this patient would benefit from a TIPS procedure given his developed hepatorenal syndrome as well as suspected portal venous oozing resulting in hemoperitoneum. After discussion with his attending Dr. Salvador he called me back and said that this patient does not need emergent TIPS procedure but in the future as outpatient might benefit if he recovers. I discussed with the hospitalist team, attending Dr. Owens, who agreed to accept the patient to their waitlist for tertiary level care. Called [facility], no beds. Called [facility], no beds. Called [facility], no beds. Called [facility] who also had no beds but requested to discuss patient with her hepatology to see what we could do for him here. Drafter Structural Dr. Horan stated that endoscopy would not likely be helpful in this case. His primary concern was that he may also have concurrent SBP. Recommending continuing IV antibiotics. Also recommended initiation of IV pantoprazole twice daily. Also recommended octreotide as well. He noted a poor prognosis for this patient's case. He recommended general surgery evaluate the patient for surgical intervention but noted he would be an extremely high risk surgical case for exploratory laparotomy. It is my clinical assessment that there is not indication for general surgery intervention but I did follow this advice and discussed patient with Dr. Del Toro who is already aware of the patient from an ER discussion from yesterday. He agreed that there is no indication for general surgery intervention in this scenario. I called and had a long conversation patient's spouse. She explained his history of alcoholism. She states for a long time he was drinking last year and not telling her. She states he would go to the store and check out money and then pay palcaios for the liquor usually a pint of vodka a day. She states that he was admitted to [facility] on February 23 and she does not think that he has drank since that time as he is not left the house that she started doing the shopping. I explained the poor prognosis and would not be surprising could not survive this hospitalization. She was emotional as expected. 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 I discussed that he may be transferred if a bed becomes available at a tertiary center and she endorsed understanding. I discussed CODE STATUS and she gave some thought and decided she wanted to keep him full code for now. Anticipate further goals of care conversation. Medications: Reviewed: Yes Vitals/I&O/Wt Last Vital Signs Temp 98.0 F 05/02/22 12:00 Pulse 90 05/02/22 12:00 Resp 18 05/02/22 12:00 BP 115/65 05/02/22 12:00 Pulse Ox 93 05/02/22 12:00 O2 Del Method 05/02/22 12:00 O2 Flow Rate 3 05/02/22 03:06 05/02/22 05/02/22 05/02/22 06:59 14:59 22:59 Intake Total 1110 / 3330 50 / 50 Balance 1110 / 3330 50 / 50 Weight last 48 hrs Weight 87.543 kg Weight 72.575 kg Physical Exam Narrative: General: Patient is more lethargic. Frail-appearing. Head: Normocephalic. Atraumatic. Temporal wasting present. Neck: No JVD. Cardiovascular: RRR. No gallops. No murmurs. 2+ pitting edema Lungs: Breath sounds diminished at bilateral bases, no use of accessory muscles, diffuse crackles. No wheezing. Skin: No jaundice. No rashes. Abdomen: Distended. Hypoactive bowel sounds, mild tenderness to palpation. Genito Urinary: Genital exam not performed since complaints not related. Rectal: Rectal exam not performed since no symptoms indicated blood loss. Extremities: No cyanosis or clubbing. Musculoskeletal: Normal range of motion, no swollen or erythematous joints. Neurological: Moves all 4 extremities. No myoclonus. Urinary Catheter Management: Ojeda: Cath Placed During This Visit: yes Urinary Catheter Date of Insertion: 05/02/22 Urinary Catheter Time of Insertion: 13:30 Data 05/02/22 05:11 05/02/22 05:11 Micro: Microbiology 05/02/22 05:14 Blood Culture - Preliminary Blood SPECIMEN COLLECTED 05/02/22 05:11 Blood Culture - Preliminary Blood SPECIMEN COLLECTED A&P Assessment and plan (1) Acute metabolic encephalopathy: Encephalopathy is worsening Ammonia level on admission was 33, get repeat in a.m. Frequent reorientation Holding sedating medications Encourage family participation in care N.p.o. pending speech therapy evaluation (2) Acute kidney injury: He has developed crackles on pulmonary exam and lower extremity edema Presentation consistent with hepatorenal syndrome Patient discussed with nephrology Appreciate nephrology input Strict I's and O's Renally dose medications (3) Liver cirrhosis: With portal hypertension complicated by hemoperitoneum Patient excepted [facility], pending bed availability, accepting physician Dr. Owens Start PPI Start octreotide Serial abdominal exams Trend hemoglobin Avoid hepatotoxins Very poor prognosis Ongoing goals of care conversation (4) Failure to thrive: Treat underlying conditions Attempted physical therapy but patient too weak and debilitated to do much with them today (5) Transaminitis: Associated with hyperbilirubinemia, metabolic acidosis, hyponatremia, hypercalc emia, hyperphosphatemia His AST to ALT ratio suggestive of alcohol use (6) Lactic acidosis: Source may be UTI, SBP or just end-stage liver disease Continue Zosyn Follow-up cultures Obtain paracentesis if ascites worsens (7) Alcohol use disorder: Liver function testing suggest alcohol use, although spouse denies UDS negative Thiamine Folate Multivitamin (8) Debility: Was unable to participate much with therapy today (9) COPD (chronic obstructive pulmonary disease): Not in acute exacerbation (10) Hypertension: Holding home HCTZ due to KELLEE (11) Tobacco use disorder: Patient would benefit from smoking cessation (12) Hypothyroidism: TSH slightly elevated, query adherence Continue home Synthroid (13) Seizure disorder: Change Keppra to IV given he is n.p.o. due to encephalopathy (14) Chronic pain: Hold home Celebrex and meloxicam due to KELLEE Continue oxycodone at reduced home dose (15) Anemia: Hemoglobin down to 9.0, from 9.8 on admission Possibly from hemoperitoneum versus dilutional from IV fluids Hemoglobin was previously 11-12 last year Trend hemoglobin (16) Thrombocytopenia: Sequela of liver cirrhosis No indication to transfuse Would consider transfusion of platelets at 50,000 due to hemoperitoneum (17) Coagulopathy: Due to liver cirrhosis Could consider correction if he continues to bleed Plan DVT ppx: Heparin Code status: Full Code Attestations Medical Necessity Statement*: Patient requires ongoing hospitalization for freeman atment of hepatorenal syndrome, liver cirrhosis, acute metabolic encephalopathy, and other chronic conditions. Coding Level of Care Code Acute Code for Ch[facility] Fwd Diagnoses Acute metabolic encephalopathy G93.41 Acute kidney injury N17.9 Liver cirrhosis K74.60 Failure to thrive Transaminitis R74.01 Lactic acidosis E87.20 Alcohol use disorder F19.90 Debility R53.81 COPD (chronic obstructive pulmonary disease) J44.9 Hypertension I10 Tobacco use disorder F17.200 Hypothyroidism E03.9 Seizure disorder G40.909 Chronic pain G89.29 Anemia D64.9 Thrombocytopenia D69.6 Coagulopathy D68.9
[2022-05-02] MEDS: LORazepam 2 mg/mL INJ 1 mL IVP (16:21)
[2022-05-02 16:41] LABS: Potassium, Radom Urine 64 mmol/L; Urine Creatinine 143 mg/dL (39-259)
[2022-05-02 16:52] LABS: Urine Random Chloride 15 mmol/L; Urine Random Sodium 10 mmol/L
[2022-05-02] MEDS: HYDROmorphone 1 mg/mL INJ 1 mL IVP (18:28)
[2022-05-03] MEDS: LORazepam 2 mg/mL INJ 1 mL 1 MG IVP ×2 (01:59→06:00)
--- NOTE | 2022-05-03 06:52 | PC.NURSE ---
Patient has been agitated twice and has responded to IV Ativan well. 02 sat was 88% on 6L NC at 0600. Report given to GILMAR Irizarry.
--- NOTE | 2022-05-03 07:56 | PC.OT ---
PATIENT HAS BEEN CHANGED TO COMFORT CARE AT THIS TIME. NO OT INDICATED.
[2022-05-03 09:58] VITALS: RESP 16
[2022-05-03] MEDS: HYDROmorphone 1 mg/mL INJ 1 mL IVP ×3 (09:58→22:56)
--- NOTE | 2022-05-03 10:40 | PC.CHAP ---
Pastoral Care Encounter/Spiritual Assessment Type of Contact [] Declined electronic organ mechanic visit [] Patient/Family/Request visit [] Outpatient visit [] Follow-up visit [] Physician referral [] Code/Alert [x] Routine visit [] Staff referral [] Actively dying [x] Patient sleeping [] Family support [] [] Out of room [] Palliative care [] [] Receiving care in room [] Pre-surgical visit [] Trauma [] Long length of stay [] ICU visit [] Other: Relational/Emotional Strength [] Patient feels connected with others/family/visitors/staff [] Distress [] Loneliness/isolation [] Abandonment Spirituality of Patient [] Person of [place] [] Attends Confucianist of their [place] [] Believes in Prayer [] Reads Bible or Druze materials [] There are Spiritual issues to be addressed Supervisor [employer] Services Interventions [] Prayer [] Active listening [] Non-anxious presence [] Spiritual/emotional support [] Crisis/trauma care [] Spiritual counseling [] Bereavement support [] Provided bereavement packet [] Provided Bible/devotional materials [] Provided toy/stuffed animal, coloring book to patient or family member [] Provided Communion [] Anointing/[place] [] Salvation [] Completed spiritual assessment [] Other: Impact on Illness or Injury [] Angry [] Fearful [] Anxious [] Often cries [] Exhaustion [] Unable to work [] Unable to attend lutheran [] Unable to walk/stand [] Unable to read [] Unable to drive [] Unable to eat/drink [] Unable to sleep [] Unable to be with family [] Patient intubated [] Other: Summary Time spent with patient
--- NOTE | 2022-05-03 13:38 | PM.PN ---
Subjective Subjective: Patient is currently on comfort care measures only. Medications: Reviewed: Yes Medication Review Details: Generic Name Dose Route Start Last Admin Trade Name Freq PRN Reason Stop Dose Admin Hydromorphone HCl 1 mg 05/02/22 18:15 05/03/22 09:58 Hydromorphone 1 Mg/Ml Inj 1 Ml IVP 1 mg Q30M PRN Administration pain, agitation, RR>18 Levetiracetam 500 mg/ Sodium 105 mls @ 420 mls /hr 05/02/22 18:00 05/03/22 05:58 Chloride IV Infused Q12H SHAE Infusion Lorazepam 1 mg 05/02/22 18:16 05/03/22 06:00 Lorazepam 2 Mg/M l Inj 1 Ml IVP 1 mg Q30MIN PRN Administration Anxiety, agitatio n, restlessne Ropinirole HCl 1 mg 05/01/22 21:00 05/02/22 20:51 Ropinirole 1 Mg Tablet PO Not Given BEDTIME SHAE Vitals/I&O/Wt Last Vital Signs Temp 98.4 F 05/02/22 19:10 Pulse 90 05/02/22 19:10 Resp 16 05/03/22 09:58 BP 87/54 05/02/22 19:10 Pulse Ox 91 05/02/22 20:52 O2 Del Method 05/02/22 16:00 O2 Flow Rate 5 05/02/22 19:15 05/02/22 05/03/22 05/03/22 22:59 06:59 14:59 Intake Total 155 / 205 105 / 310 Output Total 110 / 110 Balance 45 / 95 105 / 200 Weight last 48 hrs Weight 87.543 kg Physical Exam Resp: COMMON NORMALS: clear to auscultation bilaterally EFFORT & INSPECTION: Yes symmetric chest movement AUSCULTATION: clear to auscultation bilaterally Cardio: COMMON NORMALS: regular rate, regular rhythm, S1 normal heart sound present, S2 normal heart sound present, No gallops present (Cardio), No murmurs present (Cardio), No rub (Cardio) and Peripheral pulses 2+ throughout RATE: regular rate RHYTHM: regular rhythm HEART SOUNDS: S1 normal heart sound present and S2 normal heart sound present PERIPHERAL PULSES: Peripheral pulses 2+ throughout GI: COMMON NORMALS: Normal to inspection, nondistended, normoactive bowel sounds present, Soft to palpation, non-tender, No hepatosplenomegaly present and no masses AUSCULTATION: Yes normoactive bowel sounds PALPATION: Yes Soft to palpation and Yes No hepatosplenomegaly present RECTAL EXAM: Yes deferred Urinary Catheter Management: Ojeda: Cath Placed During This Visit: yes Reason for Continuing Indwelling Catheter: Accurate Measurement of Urinary Output in Critically Ill Patients Urinary Catheter Date of Insertion: 05/02/22 Urinary Catheter Time of Insertion: 13:30 Data 05/02/22 05:11 05/02/22 05:11 Micro: Microbiology 05/02/22 05:14 Blood Culture - Preliminary Blood NEGATIVE TO DATE 05/02/22 05:11 Blood Culture - Preliminary Blood NEGATIVE TO DATE A&P Assessment and plan (1) Coagulopathy: Secondary to end-stage liver disease (2) Thrombocytopenia: Secondary to alcohol abuse disorder, liver cirrhosis (3) Anemia: (4) Seizure disorder: Was on Keppra (5) Hypothyroidism: (6) Alcohol use disorder: Liver function testing suggest alcohol use, although spouse denies UDS negative Thiamine Folate Multivitamin (7) Lactic acidosis: Secondary to hepatic dysfunction Continue Zosyn Follow-up cultures Obtain paracentesis if ascites worsens (8) Transaminitis: Secondary to alcohol abuse disorder (9) Hypertension: (10) COPD (chronic obstructive pulmonary disease): (11) Acute metabolic encephalopathy: Encephalopathy is worsening Ammonia level on admission was 33, get repeat in a.m. Frequent reorientation Holding sedating medications (12) Acute kidney injury: Secondary to HRS type I Nephrology on board (13) Hepatorenal failure: (14) Liver cirrhosis: With portal hypertension complicated by hemoperitoneum Patient excepted [facility], pending bed availability, accepting physician Dr. Owens Start PPI Start octreotide Serial abdominal exams Trend hemoglobin Avoid hepatotoxins Very poor prognosis (15) Failure to thrive: (16) Debility: (17) Comfort measures only status: Attestations Medical Necessity Statement*: In hospital for comfort care Coding Level of Care Code Acute Code for Chg Fwd Exam Expanded Problem Focused Diagnoses Coagulopathy D68.9 Thrombocytopenia D69.6 Anemia D64.9 Seizure disorder G40.909 Hypothyroidism E03.9 Alcohol use disorder F19.90 Lactic acidosis E87.20 Transaminitis R74.01 Hypertension I10 COPD (chronic obstructive pulmonary disease) J44.9 Acute metabolic encephalopathy G93.41 Acute kidney injury N17.9 Hepatorenal failure K76.7 Liver cirrhosis K74.60 Failure to thrive Debility R53.81 Comfort measures only status Z51.5
[2022-05-03 16:07] VITALS: RESP 16
[2022-05-03 19:49] VITALS: BP 115/56; PULSE 102; RESP 22; TEMP 37.4; O2SAT 85
[2022-05-03 22:56] VITALS: RESP 22
[2022-05-04] VITALS (8 sets, daily range): BP systolic 88–100; BP diastolic 44–61; PULSE 91–105; RESP 14–20; TEMP 36.4–37.4; O2SAT 83–90
[2022-05-04] MEDS: HYDROmorphone 1 mg/mL INJ 1 mL IVP (06:36)
[2022-05-04] MEDS: morphine 4 mg/mL SDV 1 mL IVP ×2 (10:15→16:42)
[2022-05-04 11:30] LABS: Anti-streptolysin O 106 IU/mL (<200)
--- NOTE | 2022-05-04 14:10 | P.PN_ITS ---
Subjective Subjective: Patient is currently on comfort care measures only. Medications: Reviewed: Yes Medication Review Details: Generic Name Dose Route Start Last Admin Trade Name Freq PRN Reason Stop Dose Admin Atropine Sulfate 3 drop 05/03/22 16:43 05/04/22 04:47 Atropine 1% Op S oln 5 Ml Btl SUBLINGUAL 3 drop Q4H PRN Administration Excessive Secreti ons, Rattling Hydromorphone HCl 1 mg 05/02/22 18:15 05/04/22 06:36 Hydromorphone 1 Mg/Ml Inj 1 Ml IVP 1 mg Q30M PRN Administration pain, agitation, RR>18 Lorazepam 1 mg 05/02/22 18:16 05/03/22 06:00 Lorazepam 2 Mg/M l Inj 1 Ml IVP 1 mg Q30MIN PRN Administration Anxiety, agitatio n, restlessne Morphine Sulfate 2 - 10 mg 05/03/22 16:43 05/04/22 10:15 Morphine 4 Mg/Ml Sdv 1 Ml IVP 4 mg Q15M PRN Administration Moderate To Sever e Pain or SOB Ropinirole HCl 1 mg 05/01/22 21:00 05/03/22 21:49 Ropinirole 1 Mg Tablet PO Not Given BEDTIME SHAE Vitals/I&O/Wt Last Vital Signs Temp 98.8 F 05/04/22 12:11 Pulse 91 05/04/22 12:11 Resp 16 05/04/22 12:11 BP 88/51 05/04/22 12:11 Pulse Ox 83 L 05/04/22 12:11 O2 Del Method 05/02/22 16:00 O2 Flow Rate 5 05/03/22 19:15 05/03/22 05/04/22 05/04/22 22:59 06:59 14:59 Output Total 100 / 100 Balance -100 / -100 Physical Exam Resp: COMMON NORMALS: clear to auscultation bilaterally EFFORT & INSPECTION: Yes symmetric chest movement AUSCULTATION: clear to auscultation bilaterally Cardio: COMMON NORMALS: regular rate, regular rhythm, S1 normal heart sound present, S2 normal heart sound present, No gallops present (Cardio), No murmurs present (Cardio), No rub (Cardio) and Peripheral pulses 2+ throughout RATE: regular rate RHYTHM: regular rhythm HEART SOUNDS: S1 normal heart sound present and S2 normal heart sound present PERIPHERAL PULSES: Peripheral pulses 2+ throughout GI: COMMON NORMALS: Normal to inspection, nondistended, normoactive bowel sounds present, Soft to palpation, non-tender, No hepatosplenomegaly present and no masses AUSCULTATION: Yes normoactive bowel sounds PALPATION: Yes Soft to palpation and Yes No hepatosplenomegaly present RECTAL EXAM: Yes deferred Urinary Catheter Management: Ojeda: Cath Placed During This Visit: yes Reason for Continuing Indwelling Catheter: Other Urinary Catheter Date of Insertion: 05/02/22 Urinary Catheter Time of Insertion: 13:30 Data 05/02/22 05:11 05/02/22 05:11 A&P Assessment and plan (1) Coagulopathy: Secondary to end-stage liver disease (2) Thrombocytopenia: Secondary to alcohol abuse disorder, liver cirrhosis (3) Anemia: (4) Seizure disorder: Was on Keppra (5) Hypothyroidism: (6) Alcohol use disorder: Liver function testing suggest alcohol use, although spouse denies UDS negative Thiamine Folate Multivitamin (7) Lactic acidosis: Secondary to hepatic dysfunction Continue Zosyn Follow-up cultures Obtain paracentesis if ascites worsens (8) Transaminitis: Secondary to alcohol abuse disorder (9) Hypertension: (10) COPD (chronic obstructive pulmonary disease): (11) Acute metabolic encephalopathy: Encephalopathy is worsening Ammonia level on admission was 33, get repeat in a.m. Frequent reorientation Holding sedating medications (12) Acute kidney injury: Secondary to HRS type I Nephrology on board (13) Hepatorenal failure: (14) Liver cirrhosis: With portal hypertension complicated by hemoperitoneum Patient [facility], pending bed availability, accepting physician Dr. Owens Start PPI Start octreotide Serial abdominal exams Trend hemoglobin Avoid hepatotoxins Very poor prognosis (15) Failure to thrive: (16) Debility: (17) Comfort measures only status: Attestations Medical Necessity Statement*: On comfort care. Coding Level of Care Code Acute Code for g Fwd Diagnoses Coagulopathy D68.9 Thrombocytopenia D69.6 Anemia D64.9 Seizure disorder G40.909 Hypothyroidism E03.9 Alcohol use disorder F19.90 Lactic acidosis E87.20 Transaminitis R74.01 Hypertension I10 COPD (chronic obstructive pulmonary disease) J44.9 Acute metabolic encephalopathy G93.41 Acute kidney injury N17.9 Hepatorenal failure K76.7 Liver cirrhosis K74.60 Failure to thrive Debility R53.81 Comfort measures only status Z51.5
[2022-05-05 02:57] VITALS: RESP 18
[2022-05-05] MEDS: HYDROmorphone 1 mg/mL INJ 1 mL IVP (02:57)
[2022-05-05 04:47] VITALS: BP 89/44; PULSE 101; RESP 13; TEMP 36.5; O2SAT 87
[2022-05-05 07:36] VITALS: RESP 18
[2022-05-05] MEDS: morphine 4 mg/mL SDV 1 mL IVP ×4 (07:36→17:26)
[2022-05-05] MEDS: LORazepam 2 mg/mL INJ 1 mL 1 MG IVP (08:45)
--- NOTE | 2022-05-05 09:46 | PC.NURSE ---
Patient turned down from 5L to 3L NC. Fidgeting in bed so gave PRN ativan and Morphine for air hunger. Patient just turned and is moaning will give PRN to keep comfortable.
[2022-05-05 09:50] VITALS: RESP 18
[2022-05-05 11:35] VITALS: RESP 16
--- NOTE | 2022-05-05 16:55 | PM.PN ---
Subjective Subjective: Patient is currently on comfort care measures only. Medications: Reviewed: Yes Medication Review Details: Generic Name Dose Route Start Last Admin Trade Name Freq PRN Reason Stop Dose Admin Atropine Sulfate 3 drop 05/03/22 16:43 05/04/22 04:47 Atropine 1% Op S oln 5 Ml Btl SUBLINGUAL 3 drop Q4H PRN Administration Excessive Secreti ons, Rattling Hydromorphone HCl 1 mg 05/02/22 18:15 05/04/22 06:36 Hydromorphone 1 Mg/Ml Inj 1 Ml IVP 1 mg Q30M PRN Administration pain, agitation, RR>18 Lorazepam 1 mg 05/02/22 18:16 05/03/22 06:00 Lorazepam 2 Mg/M l Inj 1 Ml IVP 1 mg Q30MIN PRN Administration Anxiety, agitatio n, restlessne Morphine Sulfate 2 - 10 mg 05/03/22 16:43 05/04/22 10:15 Morphine 4 Mg/Ml Sdv 1 Ml IVP 4 mg Q15M PRN Administration Moderate To Sever e Pain or SOB Ropinirole HCl 1 mg 05/01/22 21:00 05/03/22 21:49 Ropinirole 1 Mg Tablet PO Not Given BEDTIME SHAE Vitals/I&O/Wt Last Vital Signs Temp 97.7 F 05/05/22 04:47 Pulse 101 H 05/05/22 04:47 Resp 16 05/05/22 11:35 BP 89/44 05/05/22 04:47 Pulse Ox 87 L 05/05/22 04:47 O2 Del Method 05/02/22 16:00 O2 Flow Rate 2 05/05/22 08:00 05/05/22 05/05/22 05/05/22 06:59 14:59 22:59 Output Total 50 / 150 Balance -50 / -150 Physical Exam Resp: COMMON NORMALS: clear to auscultation bilaterally EFFORT & INSPECTION: Yes symmetric chest movement AUSCULTATION: clear to auscultation bilaterally Cardio: COMMON NORMALS: regular rate, regular rhythm, S1 normal heart sound present, S2 normal heart sound present, No gallops present (Cardio), No murmurs present (Cardio), No rub (Cardio) and Peripheral pulses 2+ throughout RATE: regular rate RHYTHM: regular rhythm HEART SOUNDS: S1 normal heart sound present and S2 normal heart sound present PERIPHERAL PULSES: Peripheral pulses 2+ throughout GI: COMMON NORMALS: Normal to inspection, nondistended, normoactive bowel sounds present, Soft to palpation, non-tender, No hepatosplenomegaly present and no masses AUSCULTATION: Yes normoactive bowel sounds PALPATION: Yes Soft to palpation and Yes No hepatosplenomegaly present RECTAL EXAM: Yes deferred Urinary Catheter Management: Ojeda: Cath Placed During This Visit: yes Reason for Continuing Indwelling Catheter: Hospice/Comfort/Palliative Care Urinary Catheter Date of Insertion: 05/02/22 Urinary Catheter Time of Insertion: 13:30 Data 05/02/22 05:11 05/02/22 05:11 A&P Assessment and plan (1) Coagulopathy: Secondary to end-stage liver disease (2) Thrombocytopenia: Secondary to alcohol abuse disorder, liver cirrhosis (3) Anemia: (4) Seizure disorder: Was on Keppra (5) Hypothyroidism: (6) Alcohol use disorder: Liver function testing suggest alcohol use, although spouse denies UDS negative Thiamine Folate Multivitamin (7) Lactic acidosis: Secondary to hepatic dysfunction Continue Zosyn Follow-up cultures Obtain paracentesis if ascites worsens (8) Transaminitis: Secondary to alcohol abuse disorder (9) Hypertension: (10) COPD (chronic obstructive pulmonary disease): (11) Acute metabolic encephalopathy: Encephalopathy is worsening Ammonia level on admission was 33, get repeat in a.m. Frequent reorientation Holding sedating medications (12) Acute kidney injury: Secondary to HRS type I Nephrology on board (13) Hepatorenal failure: (14) Liver cirrhosis: With portal hypertension complicated by hemoperitoneum Patient excepted [facility], pending bed availability, accepting physician Dr. Owens Start PPI Start octreotide Serial abdominal exams Trend hemoglobin Avoid hepatotoxins Very poor prognosis (15) Failure to thrive: (16) Debility: (17) Comfort measures only status: Attestations Medical Necessity Statement*: Currently on comfort care Coding Level of Care Code Acute Code for Chg Fwd Diagnoses Coagulopathy D68.9 Thrombocytopenia D69.6 Anemia D64.9 Seizure disorder G40.909 Hypothyroidism E03.9 Alcohol use disorder F19.90 Lactic acidosis E87.20 Transaminitis R74.01 Hypertension I10 COPD (chronic obstructive pulmonary disease) J44.9 Acute metabolic encephalopathy G93.41 Acute kidney injury N17.9 Hepatorenal failure K76.7 Liver cirrhosis K74.60 Failure to thrive Debility R53.81 Comfort measures only status Z51.5
[2022-05-05] MEDS: LORazepam 2 mg/mL INJ 1 mL IVP (17:26)
--- NOTE | 2022-05-05 19:36 | PC.NURSE ---
Patient was actively passing away at time of shift change during bedside report. [facility] staff member, Ana,RN, Doreen,RN, Ivet, DRUG ENFORCEMENT ADMINISTRATION AGENT and this nurse were all present. The patient peacefully at 19:25 and was confirmed by two RNS at that time. Post mortem care is being received and all lines removed. customer complaint service supervisor has been notified.
--- NOTE | 2022-05-05 21:52 | PC.NURSE ---
This nurse tried to contact the home for the patient's pick pulling machine tender and they did not answer at this time.
--- NOTE | 2022-05-05 22:06 | PC.NURSE ---
All home medications along with the atropine drops from this hospital visit are currently being stored in the hospital [facility] on , this nurse will discuss with the nurse manager analysis on how they should be destroyed/ taken care of. The charge nurse, char house supervisor and [address] [place] [id number] staff were involved in the discussion that the meds are currently stored in the xis at this time.
--- NOTE | 2022-05-05 22:56 | PC.NURSE ---
home picking up the patient at this time.
[2022-05-07 13:34] LABS: Vit D 1,25 (Oh)2, Total 9 pg/mL (18-72); Vit D2 1,25 (Oh)2 <8 pg/mL; Vit D3 1,25 (Oh)2 9 pg/mL
--- NOTE | 2022-05-07 16:39 | PM.DDS ---
Discharge Providers DDS Date of Admission: 05/01/22 10:45 Date Summary Completed: 05/07/22 Attending Provider at Admission: Serjio Espinal MD Attending Provider at Discharge: Rusty Khalil MD Primary Care Provider: Billy [facility] Diagnoses Hospital Diagnoses (1) Coagulopathy: (2) Thrombocytopenia: (3) Anemia: (4) Seizure disorder: (5) Hypothyroidism: (6) Alcohol use disorder: (7) Lactic acidosis: (8) Transaminitis: (9) Hypertension: (10) COPD (chronic obstructive pulmonary disease): (11) Acute metabolic encephalopathy: (12) Acute kidney injury: (13) Hepatorenal failure: (14) Liver cirrhosis: (15) Failure to thrive: (16) Debility: (17) Comfort measures only status: Reason for Visit Reason for Visit WEAKNESS Summary Summary Summary: 66 year old male with a past medical history significant for liver cirrhosis, tobacco use disorder, alcohol use disorder, COPD, hypertension, seizures, hypothyroidism, and depression who presents to the emergency department via EMS with generalized weakness,Family reported to EMS that this morning he was unable to get up and walk around.? He was diffusely weak.? He was also noted to require oxygen by EMS.? He was found to have a low blood pressure treated with IV fluids with some improvement in route.? Patient himself complains of generalized abdominal discomfort, fatigue, and malaise.? EMS also reported family felt like he has been confused over the last few days which was the reason his ammonia level was checked. Patient was initially admitted for the management of acute metabolic encephalopathy KELLEE, decompensated liver cirrhosis failure to thrive transaminitis lactic acidosis, alcohol abuse disorder, seizure disorder, Had a complicated hospital course as he was developing likely KELLEE 2/2 hepatorenal syndrome, recurrent SBP, hemoperitoneum, attempt was made to transfer the patient, but there was no bed available, patient was conservatively managed with IV Protonix octreotide, antibiotics, given the significant, underlying comorbid condition, and poor overall prognosis, detailed discussion was done with family members, who decided to make the patient, comfort care. Patient was made comfort care, he passed on 05/05/2022. ? Additional Data Advance directives?: No Discharge Plan Discharge Patient Disposition: Condition: Probable Cause of Probable cause of : Cardiac arrest DS Attestations Time Spent in /Discharge Care*: less than 30 min Quality - AMI: AMI present?: No Quality - Stroke: CVA present?: No Symptom Onset Unknown: No Quality - VTE: VTE present?: No Deep Vein Thrombosis/Pulmonary Embolism Present on Admission: No Coding Level of Care Code Acute Code for Chg Fwd Diagnoses Coagulopathy D68.9 Thrombocytopenia D69.6 Anemia D64.9 Seizure disorder G40.909 Hypothyroidism E03.9 Alcohol use disorder F19.90 Lactic acidosis E87.20 Transaminitis R74.01 Hypertension I10 COPD (chronic obstructive pulmonary disease) J44.9 Acute metabolic encephalopathy G93.41 Acute kidney injury N17.9 Hepatorenal failure K76.7 Liver cirrhosis K74.60 Failure to thrive Debility R53.81 Comfort measures only status Z51.5
== END 2022-05-05 22:57 | disposition expired | DRG 441 ==
LOC: ER 10:30 → MEDSURG 12:32
PROVIDERS: Internal Medicine Nephrology; Admitting Provider Internal Medicine; Emergency Provider Student in an Organized Health Care Education/Training Program; PCP Family Medicine; Visit Provider Internal Medicine
DX: K76.7 Hepatorenal syndrome (principal); G93.41 Metabolic encephalopathy; K65.2 Spontaneous bacterial peritonitis; K66.1 Hemoperitoneum; N17.9 Acute kidney failure, unspecified; K76.6 Portal hypertension; K70.30 Alcoholic cirrhosis of liver without ascites; F10.10 Alcohol abuse, uncomplicated; F17.210 Nicotine dependence, cigarettes, uncomplicated; I12.9 Hypertensive chronic kidney disease with stage 1 through stage 4 chronic kidney disease, or unspecified chronic kidney disease; N18.31 Chronic kidney disease, stage 3a; G40.909 Epilepsy, unspecified, not intractable, without status epilepticus; E03.9 Hypothyroidism, unspecified; F32.A Depression, unspecified; I95.9 Hypotension, unspecified; I46.9 Cardiac arrest, cause unspecified; Z51.5 Encounter for palliative care; J44.9 Chronic obstructive pulmonary disease, unspecified; Z96.651 Presence of right artificial knee joint; G89.29 Other chronic pain; N40.0 Benign prostatic hyperplasia without lower urinary tract symptoms; D69.59 Other secondary thrombocytopenia; D63.1 Anemia in chronic kidney disease
CPT/HCPCS: 36415; 51702; 71045; 74018; 74176; 80053; 80306; 80307; 81001; 82140; 82436; 82550; 82570; 82652; 83010; 83605; 83615; 83735; 84100; 84133; 84145; 84300; 84443; 84550; 85025; 85045; 85610; 86060; 86160; 87040; 87426; 87804; 96365; 96372; 96375; 97162; 97530; 99285; C9113; J1170; J1630; J1644; J1953; J2060; J2270; J2354; J2543; J3010; J7030; J7799; Q3014